=== PATIENT | male | born 1995 | race Caucasian/White ===

== ENCOUNTER 2017-11-10 22:36 | Inpatient (IN) | payer OTHER ==
[~2017-11-10] VITALS: Ht 186.7 cm; Wt 87.7 kg
[~2017-11-10 22:36] MED LIST: AUGMENTIN 875-1 EACH PO; LIDODERM1 EACH TOP; NAPROSYN500 M1 PO; NEXIUM20 M1 PO
--- NOTE | 2017-11-10 22:41 | ED GENERAL ADULT ---
History of Present Illness General Chief Complaint: Psychiatric Related Complaint Stated Complaint: BIBA +SI/DEPRESSION Source: patient Exam Limitations: clinical condition, intoxication Allergies Coded Allergies: No Known Allergies (05/08/17) Reconcile Medications Amoxicillin/Potassium Clav (Augmentin 875-125 Tablet) 875 MG-125 MG TABLET 1 TAB PO BID dog bite Esomeprazole Magnesium (Nexium) 20 MG CAPSULE.DR 1 CAP PO DAILY stomach acid Lidocaine (Lidoderm) 5 % ADH..PATCH 1 PAT TOP DAILY PRN pain may wear up to 12 hours Naproxen (Naprosyn) 500 MG TABLET 1 TAB PO BID PRN pain Triage Nurses Notes Reviewed? yes Onset: Abrupt Duration: unknown duration Timing: recent history HPI: 11/11/17 22-year-old man brought in by ambulance for depression with suicidal ideation. He states that he took an unknown quantity of Lamictal and also took Buprenorhine. He does admit to suicidal ideation. History is limited as he is intoxicated. He says he has a history of bipolar disorder. Initially said he took only 5 Lamictal tablets, on reevaluation he says he took 50 tablets at 7 PM. Consultation with poison control was obtained. Supportive care, IV fluids, and monitoring for seizures. (Davis Pretty DO) Vital Signs & Intake/Output Vital Signs & Intake/Output Vital Signs Date Time Temp Pulse Resp B/P B/P Pulse O2 O2 Flow FiO2 Mean Ox Delivery Rate 11/11 0142 146 16 139/53 99 Room Air Room Air 11/11 0052 138 16 139/74 99 Room Air Room Air 11/10 2310 99.5 128 20 129/80 96 Room Air (Roby NAVARRO,Luke Salas) Past History Medical History Any Pertinent Medical History? see below for history Neurological: NONE EENT: NONE Cardiovascular: NONE Respiratory: NONE Gastrointestinal: NONE Hepatic: NONE Renal: NONE Musculoskeletal: NONE Psychiatric: anxiety, depression Endocrine: NONE Blood Disorders: NONE Cancer(s): NONE [employer]/Reproductive: NONE Surgical History Surgical History: non-contributory Psychosocial History What is your primary language St Helen[place] Family History Hx Contributory? No (Davis Pretty DO) Review of Systems Review of Systems Constitutional: Denies: fever. EENTM: Reports: see HPI. Respiratory: Denies: short of breath. Cardiovascular: Denies: chest pain. GI: Reports: no symptoms. Genitourinary: Reports: no symptoms. Musculoskeletal: Reports: no symptoms. Skin: Reports: no symptoms. Neurological/Psychological: Reports: anxiety. Hematologic/Endocrine: Reports: no symptoms. Immunologic/Allergic: Reports: no symptoms. (Davis Pretty DO) Physical Exam Physical Exam General Appearance: awake, anxious, severe distress Head: rotary nystagmus Eyes: Bilateral: EOMI (rotary nystagmus). Ears, Nose, Throat: normal pharynx Neck: normal inspection, supple Respiratory: normal breath sounds, chest non-tender, no respiratory distress Cardiovascular: tachycardia Peripheral Pulses: 4+ radial (R), 4+ radial (L) Gastrointestinal: soft, non-tender Back: decreased range of motion Extremities: normal inspection, no edema Neurologic/Psych: awake, alert Skin: intact, normal color, warm/dry Core Measures ACS in differential dx? No CVA/TIA Diagnosis: No Sepsis Present: No Sepsis Focused Exam Completed? No (Davis Pretty DO) Progress Differential Diagnoses I considered the following diagnoses in my evaluation of the patient: Plan of Care: Orders Procedure Date/time Status EKG 11/11 0330 Active Patient Data 11/116 Active Admit to inpatient 11/11 0312 Active Intake & Output 11/11 0259 Active Add-on Test (ER Only) 11/11 0252 Active Add-on Test (ER Only) 11/11 0108 Active Add-on Test (ER Only) 11/11 0103 Active Add-on Test (ER Only) 11/11 0057 Active Telemetry/Chemical Economist 11/11 0057 Active EKG 11/11 0057 Active Continuous Observation Monitor 11/11 0028 Active URINE DRUG SCREEN FOR ER ONLY 11/11 2319 Complete ACETOMINOPHEN 11/11 2319 Active SALICYLATE 11/11 2319 Active LIPASE 11/11 2319 Active ETHANOL 11/11 2319 Active DEPAKOTE LEVEL 11/11 2319 Active COMPREHENSIVE METABOLIC PANEL 11/11 2319 Active CREATINE PHOSPHOKINASE 11/11 2319 Active CBC WITHOUT DIFFERENTIAL 11/11 2319 Complete AMYLASE 11/11 2319 Active Laboratory Tests 11/10/17 2324: Methadone Screen < 40, Barbiturate Screen < 60, Ur Phencyclidine Scrn < 6.00, Amphetamines Screen < 100, U Benzodiazepines Scrn < 85, Urine Cocaine Screen < 50, Urine Cannabis Screen < 5.00 11/10/17 2320: Anion Gap 12, Estimated GFR > 60, BUN/Creatinine Ratio 15.0, Glucose 109 H, Calcium 9.2, Total Bilirubin 0.4, AST 27, ALT 34, Alkaline Phosphatase 73, Creatine Kinase 123, Total Protein 6.8, Albumin 4.6, Globulin 2.2, Albumin/ Globulin Ratio 2.1, Amylase Pending, Lipase Pending, CBC w Diff NO MAN DIFF REQ, RBC 5.32, MCV 87.5, MCH 29.9, MCHC 34.2, RDW 12.6, MPV 7.8, Gran % 61.1, Lymphocytes % 29.4, Monocytes % 7.1, Eosinophils % 2.0, Basophils % 0.4, Absolute Granulocytes 5.0, Absolute Lymphocytes 2.4, Absolute Monocytes 0.6, Absolute Eosinophils 0.2, Absolute Basophils 0, Salicylates < 1.0, Acetaminophen < 10.0 L, Valproic Acid < 10.0 L, Serum Alcohol 120.0 Initial ED EKG: narrow complex tachycardia, 140s Consultation with cardiology- Dr. Ritter, agrees no A. fib. Supportive care with IV fluids. Comments: The patient was treated with IV fluids. He was on a environmental monitoring technician, multiple neurological exams. He was always oriented 3 but was slow to respond, with rotary nystagmus. The patient was signed out to Dr. Ca for further observation and likely admission. (Davis Pretty DO) Diagnostic Imaging: Viewed by Me: Radiology Read. Discussed w/RAD: Radiology Read. CXR Impression: PATIENT: DENISE PLATA PRESENT AGE: 22 PATIENT ACCOUNT NO: [id number] : 93 LOCATION: [facility] ORDERING PHYSICIAN: Davis Pretty DO SERVICE DATE: 11/11/17 EXAM TYPE: RAD - XRY-PORTABLE CHEST XRAY EXAMINATION: CHEST 1 VIEW CLINICAL INFORMATION: Vomiting. Altered mental status. COMPARISON: None. TECHNIQUE: An AP view of the chest is provided. FINDINGS: The cardiac silhouette is not enlarged. The mediastinal and hilar contours are unremarkable. There are neither pleural effusions nor pneumothoraces. There are no consolidations. The osseous structures are unremarkable. IMPRESSION: No evidence for acute disease. DICTATED BY: Dio Arrieta MD DATE/TIME DICTATED:11/11/17241 BATTERY PLATE REMOVER: CLARE DATE/TIME TRANSCRIBED:11/11/17241 CONFIDENTIAL, DO NOT COPY WITHOUT APPROPRIATE AUTHORIZATION. <Electronically signed in Other Vendor System> SIGNED BY: Dio Arrieta MD 11/11/17245 (Luke Ca MD) Departure Departure Disposition: STILL A PATIENT Condition: Stable Referrals: Patient Has No Primary Care Dr (PCP/Family) Departure Forms: Customer Survey General Discharge Information (Davis Pretty DO) Departure Clinical Impression Primary Impression: Drug overdose Secondary Impressions: Acute delirium, Tachycardia Comments 11/11/17, 2:50am... pt informs me the lamictal tabs 100mg, approx 50 pills... 50 gm total at approximately 7pm (8 hours ago) discussed with poison control.... pts with 4gm overdoses have had widening qrs complex, seizures, coma..... peak time to onset is 2-3 hours... to 4-11 hours... 1/2 life 14 hours (2gms) up to 28-36 hours. Admission Note Spoke With: Daljit Hale MD Documentation of Exam: Documentation of any treatments & extenuating circumstances including Concerns Regarding Discharge (functional status, medication knowledge or non-compliance, living conditions, etc.) that warrant an admission rather than observation: pt with approximately 50 gm lamictal overdose 8 hours ago with oculogyrus, delerium... given the high risk of dysrhythmia, coma with uncertain, prolonged pharmacokinetics (noted above), pt merits icu admission. (Roby NAVARRO,Luke Salas) Critical Care Note Critical Care Note Critical Care Time: 30-74 min (Davis Pretty DO) Critical Care Time: 30-74 min (Davis Pretty DO)
[2017-11-10 23:37] LABS: ABSOLUTE BASOPHIL COUNT 0 /CUMM (0.0-0.2); ABSOLUTE EOSINOPHIL COUNT 0.2 /CUMM (0.0-0.7); ABSOLUTE LYMPH COUNT 2.4 /CUMM (1.2-3.4); ABSOLUTE MONOCYTE COUNT 0.6 /CUMM (0.10-0.60); BASOPHIL % 0.4 % (0.0-2.0); GRANULOCYTE % 61.1 % (42.2-75.2); HEMATOCRIT 46.5 % (42-52); MEAN CORPUSCULAR HGB 29.9 PG (27.0-31.0); MEAN CORPUSCULAR HGB CONC 34.2 G/DL (33.0-37.0); MEAN CORPUSCULAR VOLUME 87.5 FL (80.0-94.0); MEAN PLATELET VOLUME 7.8 FL (7.4-10.4); PLATELET COUNT 235 /CUMM (130-400); RBC DISTRIBUTION WIDTH 12.6 % (11.5-14.5); RED BLOOD CELL CT 5.32 /CUMM (4.70-6.10); WHITE BLOOD CELL COUNT 8.2 /CUMM (4.8-10.8)
--- NOTE | 2017-11-11 02:46 | RADIOLOGY REPORT ---
EXAMINATION: CHEST 1 VIEW CLINICAL INFORMATION: Vomiting. Altered mental status. COMPARISON: None. TECHNIQUE: An AP view of the chest is provided. FINDINGS: The cardiac silhouette is not enlarged. The mediastinal and hilar contours are unremarkable. There are neither pleural effusions nor pneumothoraces. There are no consolidations. The osseous structures are unremarkable. IMPRESSION: No evidence for acute disease.
--- NOTE | 2017-11-11 03:22 | History & Physical ---
Nilton Lobato 11/11/17 0321: General Information and HPI MD Statement: I have seen and personally examined DENISE PLATA and documented this H&P. The patient is a 22 year old M who presented with a patient stated chief complaint of SUICIDE ATTEMPT BY INGESTION OF LAMOTRIGINE, BUPROPRION, ALCOHOL, AND DISULFIRAM. Source of Information: patient Exam Limitations: clinical condition History of Present Illness: Patient is a 22 year old male with past medical history of bipolar ( predominantly depressive symptoms) and alcohol abuse, with hospitalizations for both, and one prior suicide attempt by medication ingestion, who was brought in by ambulance for suicide attempt by ingestion of lamotrigine, bupropion, alcohol , and disulfiram. The patient began drinking alcohol at 1600 yesterday, with the expressed intent of getting drunk, and without self-harm intentions. At some point between 1600 and 1900, the patient developed the idea to attempt suicide by taking an overdose of his prescribed medications, lamotrigine and bupropion. He estimates he took 25-50 pills of each, lamotrigine 100mg and buproprion XL 150mg. He also states he took roughly 8 pills of disulfiram. Of note, the patient states he had not taken either of those medications in roughly two weeks, and that he took himself off of them without consulting a physician. Also during this time, the patient reached out to a female friend he states he has not had contact with in over a year, and that he made a comment which he cannot directly remember, but that it was worrisome to her and that is why she called the emergency services. In the ED, the patient admitted to overdose by lamotrigine, and later included buproprion. On exam, he was overtly spastic and ataxic; the nurse reported to this physician that when he first presented he was particularly rigid. He was found to have hypokalema 3.4, magnesium and phosphorus pending. His EKG showed sinus tachycardia, initially at 143 bpm, later slowing to 114 bpm with fluid repletion. His chest x-ray was unremarkable. When asked about the reason for the suicide attempt, the patient stated that his home life was difficult, and described having feelings for his roommate, who currently has another boyfriend. He then stated that there is more complicating his home life, but would not specify more. He is being admitted to the ICU for monitoring of overdose toxicity and electrolyte imbalances. Allergies/Medications Allergies: Coded Allergies: No Known Allergies (05/08/17) Home Med list Amoxicillin/Potassium Clav (Augmentin 875-125 Tablet) 875 MG-125 MG TABLET 1 TAB PO BID dog bite Esomeprazole Magnesium (Nexium) 20 MG CAPSULE.DR 1 CAP PO DAILY stomach acid Lidocaine (Lidoderm) 5 % ADH..PATCH 1 PAT TOP DAILY PRN pain may wear up to 12 hours Naproxen (Naprosyn) 500 MG TABLET 1 TAB PO BID PRN pain Compliance With Home Meds: POOR Past History Travel History Traveled to [place] past 21 day No Medical History Neurological: NONE EENT: NONE Cardiovascular: NONE Respiratory: NONE Gastrointestinal: NONE Hepatic: NONE Renal: NONE Musculoskeletal: NONE Psychiatric: anxiety, bipolar disease, depression Endocrine: NONE Blood Disorders: NONE Cancer(s): NONE 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 Home Who Do You Live With? roommate Services at Home: None Primary Language: Algerian Smoking Status: Former Smoker (uses lozenges) ETOH Use: alcoholic (has been hospitalized and IOP) Illicit Drug Use: denies illicit drug use Functional Ability ADLs Independent: dressing, eating, toileting, bathing. Ambulation: independent IADLs Independent: shopping, housework, finances, food prep, telephone, transportation , medication admin. Employment History Employment Unemployed Review of Systems Review of Systems Constitutional: Reports: see HPI. All Other Systems: Reviewed and Negative Exam & Diagnostic Data Last 24 Hrs of Vital Signs/I&O Vital Signs Date Time Temp Pulse Resp B/P B/P Pulse O2 O2 Flow FiO2 Mean Ox Delivery Rate 11/11 0415 99 Room Air Room Air 11/11 0413 116 16 139/72 99 Room Air Room Air 11/11 0330 114 16 138/76 99 Room Air Room Air 11/11 0230 121 16 132/78 99 Room Air Room Air 11/11 0142 146 16 139/53 99 Room Air Room Air 11/11 0052 138 16 139/74 99 Room Air Room Air 11/10 2310 99.5 128 20 129/80 96 Room Air Intake & Output 11/11 0800 11/11 0000 08/23 1600 Intake Total 3000 Output Total 600 Balance 2400 Intake, IV 3000 Output, 600 Emesis Physical Exam General Appearance Moderate Distress, rhythmic head/neck motion at rest; ataxic movements; decreased alertness Skin No Rashes, No Breakdown, No Significant Lesion Skin Temp/Moisture Exam: Warm/Dry HEENT Atraumatic, pupils dilated at baseline; brisk direct and consensual response to light Neck Supple, No JVD, No thryomegaly Cardiovascular Normal S1, Normal S2, No Murmurs, Gallops, Rubs, regularly accelerated Lungs Clear to Auscultation, Normal Air Movement Abdomen Normal Bowel Sounds, Soft, No Tenderness, No Masses Neurological Strength at 5/5 X4 Ext, speech was slow and dysarthric; movement and reflexes were =4 brisk, pronounced ataxia on cerebellar testing Extremities No Clubbing, No Cyanosis, No Edema, Normal Pulses Last 24 Hrs of Labs/Babak: Laboratory Tests 11/11/17 0505: Sodium Pending, Potassium Pending, Chloride Pending, Carbon Dioxide Pending, Anion Gap Pending, BUN Pending, Creatinine Pending, Glucose Pending, Calcium Pending, Phosphorus Pending, Magnesium Pending, Total Bilirubin Pending, AST Pending, ALT Pending, Albumin Pending, CBC w Diff Pending, WBC Pending, RBC Pending, Hgb Pending, Hct Pending, MCV Pending, MCH Pending, MCHC Pending, RDW Pending, Plt Count Pending, MPV Pending 11/10/17 2324: Methadone Screen < 40, Barbiturate Screen < 60, Ur Phencyclidine Scrn < 6.00, Amphetamines Screen < 100, U Benzodiazepines Scrn < 85, Urine Cocaine Screen < 50, Urine Cannabis Screen < 5.00 11/10/17 2320: Anion Gap 12, Estimated GFR > 60, BUN/Creatinine Ratio 15.0, Glucose 109 H, Calcium 9.2, Total Bilirubin 0.4, AST 27, ALT 34, Alkaline Phosphatase 73, Creatine Kinase 123, Total Protein 6.8, Albumin 4.6, Globulin 2.2, Albumin/ Globulin Ratio 2.1, Amylase 107, Lipase 224, CBC w Diff NO MAN DIFF REQ, RBC 5.32, MCV 87.5, MCH 29.9, MCHC 34.2, RDW 12.6, MPV 7.8, Gran % 61.1, Lymphocytes % 29.4, Monocytes % 7.1, Eosinophils % 2.0, Basophils % 0.4, Absolute Granulocytes 5.0, Absolute Lymphocytes 2.4, Absolute Monocytes 0.6, Absolute Eosinophils 0.2, Absolute Basophils 0, Salicylates < 1.0, Acetaminophen < 10.0 L, Valproic Acid < 10.0 L, Serum Alcohol 120.0 Diagnostic Data EKG Results sinus tachycardia, borderline widened QTc, normal QRS CXR Results Unremarkable Assessment/Plan Assessment: Patient is a 22 year old male with past medical history of bipolar ( predominantly depressive symptoms) and alcohol abuse, with hospitalizations for both, and one prior suicide attempt by medication ingestion, who was brought in by ambulance for suicide attempt by ingestion of lamotrigine, bupropion, alcohol , and disulfiram. Problem list/plan: Overdose toxicity -Patient states he overdosed on lamotrigine, buproprion, alcohol and disulfiram -Patient has already had 5L NS hung; continue hydration -Replete K with 4 runs of 10meq, recheck K -Start sodium bicarbonate drip 150meq at 150ml/hr -One time dose of ativan for seizure prophylaxis -Start CIWA protocol, diagnostic only -Neurology consult for ataxia Bipolar, predominantly depressive symptoms -Psychiatry consultation once patient is medically stable -Continuous monitor for suicide prevention Alcohol abuse -Patient states he has had roughly 7-8 months sobriety, with just this and a few other slips -Already covered for alcohol withdrawal with CIWA protocol DVT prophylaxis: Subcu heparin and ALPS NPO presently Patient is full code As Ranked By This Provider Problem List: 1. Drug overdose 2. Overdose of anticonvulsant 3. Overdose of antidepressant 4. Prolonged Q-T interval on ECG 5. Hypokalemia 6. Tachycardia Core Measures/Misc (12/05) Acute Coronary Syndrome ACS Diagnosis: No Congestive Heart Failure Congestive Heart Failure Diagnosis No Cerebrovascular Accident CVA/TIA Diagnosis: No VTE (View Protocol) VTE Risk Factors Acute Medical Illness No Mechanical VTE Prophylaxis d/t N/A MechProphylax Ordered No VTE Pharm Prophylaxis d/t NA PharmProphylax ordered Sepsis (View protocol) Sepsis Present: No If YES complete Sepsis Event Note If YES complete Sepsis Event Note Mikey Baca MD 11/11/17 0531: Core Measures/Misc (12/05) Sepsis (View protocol) If YES complete Sepsis Event Note If YES complete Sepsis Event Note Resident Review Statement Resident Statement: examined this patient, discussed with ad operations intern, agreed with ad operations intern, reviewed EMR data (avail) Other Findings: 22 year old male with past medical history of bipolar and alcohol use disorders with reported approximately eight psych hospitalizations mostly for depressive symptoms with SI (1 for intention pharmaceutical overdose, can't recall medications), and inpatient and IOP txs for EtOH most recently at [facility] for which he is in treatment with Chelsea Hoover who provides him with Antabuse, Wellbutrin, and Lamictal who presents with intentional toxic ingestion of those medications with alcohol in a suicide attempt. He says hes recently had seven months of sobriety but had a slip and recently 30 days of sobriety leading up to today when he started drinking a pint of vodka around 1600. At 1900, he ingested approximately 25-50 tablets of both Lamictal 100mg and Wellbutrin XL 150mg. He also states he took 8 tables of Antabuse 250mg but denies that he had a disulfuram reaction, although this has happened to him before. He states he sent a suicidal text to a female acquaintance re: suicidality and was brought to [facility] by EMS thereafter. He states this was an intentional suicide attempt and impulsive. He states he is upset by "home-life" and only references living with a female for whom he has feelings that aren't reciprocal. Poison control was contacted and he was admitted to critical care for monitoring, supportive care, seizure precautions, and electrolyte abnormalities. EKG was sinus tachycardia QRS <120ms and QTc from 430-475, chemistries were notable for hypokalemia of 3.4 but otherwise unremarkable. Chest x-ray was normal. Physical exam- awake alert and oriented, speech was slowed, dysarthritic, flat, diaphoretic, tachycardic, without murmurs, lungs CTA, abdomen soft nt/nd bs+, no lower extremity edema, motor strength 5/5 all extremities Neuro LILI EOMI, CN 2-12 intact, all muscle groups spastic without rigidity, global ataxia with inability to perform cerebellar testing, gag reflex present, gait not assessed 22 year old male with PMH significant for bipolar, alcohol use disorder with prior suicide attempts now admitted to critical care for supportive care, seizure precautions after intentional toxic ingestion with alcohol, bupropion, and lamotrigine. Toxic ingestion/suicide attempt: Admit to ICU Toxicity includes arrhythmia and seizure Given 5L of crystalloid in the ED Poison control contacted Serial EKGs, QTc prolonged to 475, start 150meq NaHCO3 in D5W @ 150cc/hr x 1L Increased seizure risk from both lamictal and bupropion, especially XL formulation Patient reported vomited some pills in the ED Serum EtOH was 120 on presentation Ativan 2mg IV x 1, CIWA monitoring, consider adding prn ativan Neurochecks Seizure precautions Aspiration precautions Fall risk Suicide precautions Continuous observation monitor Psychiatry consultation Monitor for serotonin syndrome, fever, rigidity, consider repeat CK Trend electrolytes, potassium repleted intravenously NPO DVT ppx-heparin sc Full code Daljit Hale MD 11/11/17 0555: Core Measures/Misc (12/05) Sepsis (View protocol) If YES complete Sepsis Event Note If YES complete Sepsis Event Note Attending MD Review Statement Attending Statement Attending MD Statement: examined this patient, discuss w/resident/PA/PRESS SET UP PERSON, agreed w/resident/PA/PRESS SET UP PERSON Attending Assessment/Plan: Patient is seen and examined independently by me. Care plan discussed with medical record technician and/or resident. I agree with the physical exam findings and plan of care as outlined above with the following changes and additions. 22 yo M with history of Bipolar disorder, suicide attempt, alcohol abuse, anxiety, presented with depression and suicide attempt with drug overdose. Patient states at about 4 pm, he drank 1 pint of Vodka. At about 7pm, he took about 50 pills of Lamictal 100 mg, about 50 pills of Wellbutrin XL 150 mg and 8 pills of Antabuse 250 mg. On exam, patient appears agitated. HR 114 (but as fast as 140s). Heart: tachy, S1S2. Lungs: clear. In the ED, K 3.4. Cr 0.8. Salicylates <1. Acetaminophen <10. Valproic acid <10. Urine tox screen negative. EtOH 120. CXR shows no acute infiltrate or edema. EKG#1 shows sinus tachy at [address]-T changes. QTc 432. EKG#2 shows sinus tachy at [address]-T changes. QTc 474. Patient is admitted to ICU for suicide attempt and drug overdose with Lamictal, Wellbutrin and Antabuse.\\ Cardiac monitoring. Monitor for tachycardia, arrhythmia, prolonged QT and seizure. IVF with bicarb drip and supportive care. Supplement K and monitor K, Mag and PO4. Keep K>4.0 and Mag >2.0. CIWA monitoring with Ativan prn. Start thiamine and folic acid. Suicide precaution. 1:1 sitter. Seizure precaution. Psych consult. Contact Poison Control. [facility]it Hale [facility]
[2017-11-11 05:16] LABS: ABSOLUTE BASOPHIL COUNT 0 /CUMM (0.0-0.2); ABSOLUTE EOSINOPHIL COUNT 0 /CUMM (0.0-0.7); ABSOLUTE GRANULOCYTE CT 9.3 /CUMM (1.4-6.5); ABSOLUTE MONOCYTE COUNT 0.6 /CUMM (0.10-0.60); BASOPHIL % 0.3 % (0.0-2.0); EOSINOPHIL % 0.2 % (0-5); GRANULOCYTE % 84.7 % (42.2-75.2); MEAN CORPUSCULAR HGB 30.1 PG (27.0-31.0); MEAN CORPUSCULAR VOLUME 88.7 FL (80.0-94.0); MEAN PLATELET VOLUME 7.7 FL (7.4-10.4); PLATELET COUNT 196 /CUMM (130-400); RBC DISTRIBUTION WIDTH 12.7 % (11.5-14.5); RED BLOOD CELL CT 4.55 /CUMM (4.70-6.10)
[2017-11-11 05:19] LABS: HEMATOCRIT 40.3 % (42-52)
[2017-11-11 06:14] VITALS: BP 130/82
--- NOTE | 2017-11-11 07:38 | Cons- CRCU ---
Abundio Jeornimo 11/11/17 0738: General Information and HPI Consulting Request Date of Consult: 11/11/17 Requested By: Medical team Reason for Consult: Drug overdose, risk of seizures and arrhythmia Source of Information: patient, EMS Exam Limitations: no limitations History of Present Illness: 22 YO M with PMH of bipolar, anxiety and alcohol use disorders with prior suicide attempts, reported approximately eight psych hospitalizations mostly for depressive symptoms with SI (1 for intention pharmaceutical overdose, can't recall medications), and inpatient and IOP txs for EtOH most recently at care for which he is in treatment with Chelsea Hoover who provides him with Antabuse, Wellbutrin, and Lamictal who presents with intentional toxic ingestion of those medications with alcohol in a suicide attempt. He says hes recently had seven months of sobriety but had a slip and recently 30 days of sobriety leading up to today when he started drinking a pint of vodka around 1600. At 1900, he ingested approximately 25-50 tablets of both Lamictal 100mg and Wellbutrin XL 150mg. He states this was an intentional suicide attempt and impulsive. He states he is upset by "home-life" and only references living with a female for whom he has feelings that aren't reciprocal. He is being admitted to critical care for close monitoring for seizures and arrhythmia. Also for supportive care, seizure precautions after intentional toxic ingestion with alcohol, bupropion, and lamotrigine. Patient is seen and examined this morning. He was looking anxious and drowsy. He reported nausea and vomiting. He reported vomiting couple of times last night. Patient doesn't want to inform his parents/family members about his condition and admission to hospital. Patient has one on one sitter on the bedside. Allergies/Medications Allergies: Coded Allergies: No Known Allergies (05/08/17) Home Med List: Amoxicillin/Potassium Clav (Augmentin 875-125 Tablet) 875 MG-125 MG TABLET 1 TAB PO BID dog bite Esomeprazole Magnesium (Nexium) 20 MG CAPSULE.DR 1 CAP PO DAILY stomach acid Lidocaine (Lidoderm) 5 % ADH..PATCH 1 PAT TOP DAILY PRN pain may wear up to 12 hours Naproxen (Naprosyn) 500 MG TABLET 1 TAB PO BID PRN pain Current Medications: Current Medications Sig/Nancy Start time Last Medication Dose Route Stop Time Status Admin Calcium Gluconate 0 .STK-MED ONE 11/11 0758 DC IV Calcium Gluconate 1 GM ONCE ONE 11/11 0615 DC 11/11 Sodium Chloride 100 ML IV 11/11 0714 0802 Heparin Sodium 5,000 UNIT Q8 11/11 0600 AC (Porcine) SC Lorazepam 0 .STK-MED ONE 11/11 0502 DC .ROUTE Lorazepam 2 MG ONE ONE 11/11 0500 DC 11/11 IV 11/11 0501 0505 Magnesium Sulfate 1 GM Q2H 11/11 0615 AC 11/11 Dextrose/Water 100 ML IV 11/11 1014 0811 Magnesium Sulfate 1 GM ONCE ONE 11/11 0430 DC 11/11 Dextrose/Water 100 ML IV 11/11 0829 0547 Potassium Chloride 10 MEQ Q1H 11/11 0445 DC 11/11 IV 11/11 0746 0824 Potassium Phosphate 15 mMol ONE ONE 11/11 0615 AC 11/11 Dextrose/Water 250 ML IV 11/11 1019 0900 Sodium Bicarbonate 150 MEQ CONTINOUS INFUSION 11/11 0515 AC Dextrose/Water 1,000 ML IV 11/11 1154 Sodium Chloride 1,000 ML Q6H 11/11 0430 AC 11/11 IV 0510 Sodium Chloride 1,000 ML BOLUS ONE 11/11 0300 DC 08 IV 11/11 0359 0407 Sodium Chloride 1,000 ML BOLUS ONE 11/11 0300 DC 11/11 IV 11/11 0359 0320 Sodium Chloride 1,000 ML BOLUS ONE 11/11 0300 DC 11/11 IV 11/11 0359 0240 Sodium Chloride 1,000 ML BOLUS ONE 11/11 0130 DC 11/11 IV 11/11 0229 0140 Sodium Chloride 1,000 ML BOLUS ONE 11/11 0100 DC 11/11 IV 11/11 0259 0110 Review of Systems Review of Systems Constitutional: Denies: chills, fever. EENTM: Reports: see HPI. Cardiovascular: Denies: chest pain, palpitations, syncope. Respiratory: Denies: cough, short of breath, sputum production. GI: Reports: nausea, vomiting. Denies: abdominal pain, constipation, diarrhea. Genitourinary: Denies: frequency, pain. Musculoskeletal: Reports: see HPI. Neurological/Psychological: Reports: see HPI. 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 Home Who Do You Live With? roommate Services at Home: None Primary Language: French Smoking Status: Former Smoker (uses lozenges) ETOH Use: alcoholic (has been hospitalized and IOP) Illicit Drug Use: denies illicit drug use Functional Ability ADLs Independent: dressing, eating, toileting, bathing. Ambulation: independent IADLs Independent: shopping, housework, finances, food prep, telephone, transportation , medication admin. Employment History Employment: Unemployed Exam & Diagnostic Data Last 24 Hrs of Vital Signs/I&O Vital Signs Date Time Temp Pulse Resp B/P B/P Pulse O2 O2 Flow FiO2 Mean Ox Delivery Rate 11/11 08 98.6 105 20 124/79 100 Room Air 11/11 0614 97.1 122 24 130/82 11/11 0614 97 Room Air Room Air 11/11 0510 96.9 120 16 135/76 99 Room Air Room Air 11/11 0415 99 Room Air Room Air 11/11 0413 116 16 139/72 99 Room Air Room Air 11/11 0330 114 16 138/76 99 Room Air Room Air 11/11 0230 121 16 132/78 99 Room Air Room Air 11/11 0142 146 16 139/53 99 Room Air Room Air 11/11 0052 138 16 139/74 99 Room Air Room Air 11/10 2310 99.5 128 20 129/80 96 Room Air Intake & Output 11/11 1600 11/11 0800 11/11 0000 Intake Total 5000 Output Total 1300 Balance 3700 Intake, IV 5000 Output, 800 Emesis Output, Urine 500 Patient 193 lb Weight Weight Bed scale Measurement Method Physical Exam General Appearance: well developed/nourished, no apparent distress, alert, awake , anxious Head: atraumatic Neck: normal inspection, supple Respiratory: normal breath sounds, chest non-tender Cardiovascular: regular rate/rhythm Gastrointestinal: normal bowel sounds, soft, non-tender Extremities: no edema Neurologic/Psych: awake, alert, Ataxia, TREMORS Last 48 Hrs of Labs/Babak: Laboratory Tests 11/11/17 1050: Sodium Pending, Potassium Pending, Chloride Pending, Carbon Dioxide Pending, Anion Gap Pending, BUN Pending, Creatinine Pending, Glucose Pending, Lactic Acid Pending, Calcium Pending, Phosphorus Pending, Magnesium Pending, Total Bilirubin Pending, AST Pending, ALT Pending, Creatine Kinase Pending, Troponin I Pending, Albumin Pending 11/11/17 0505: Anion Gap 12, Estimated GFR > 60, Glucose 115 H, Calcium 7.2 L, Phosphorus 2.4 L, Magnesium 1.4 L, Total Bilirubin 0.3, AST 23, ALT 31, Albumin 3.7, CBC w Diff NO MAN DIFF REQ, RBC 4.55 L, MCV 88.7, MCH 30.1, MCHC 34.0, RDW 12.7, MPV 7.7, Gran % 84.7 H, Lymphocytes % 9.3 L, Monocytes % 5.5, Eosinophils % 0.2, Basophils % 0.3, Absolute Granulocytes 9.3 H, Absolute Lymphocytes 1.0 L, Absolute Monocytes 0.6, Absolute Eosinophils 0, Absolute Basophils 0 11/10/17 2324: Methadone Screen < 40, Barbiturate Screen < 60, Ur Phencyclidine Scrn < 6.00, Amphetamines Screen < 100, U Benzodiazepines Scrn < 85, Urine Cocaine Screen < 50, Urine Cannabis Screen < 5.00 11/10/17 2320: Anion Gap 12, Estimated GFR > 60, BUN/Creatinine Ratio 15.0, Glucose 109 H, Calcium 9.2, Magnesium 2.2, Total Bilirubin 0.4, AST 27, ALT 34, Alkaline Phosphatase 73, Creatine Kinase 123, Total Protein 6.8, Albumin 4.6, Globulin 2.2, Albumin/Globulin Ratio 2.1, Amylase 107, Lipase 224, CBC w Diff NO MAN DIFF REQ, RBC 5.32, MCV 87.5, MCH 29.9, MCHC 34.2, RDW 12.6, MPV 7.8, Gran % 61.1, Lymphocytes % 29.4, Monocytes % 7.1, Eosinophils % 2.0, Basophils % 0.4, Absolute Granulocytes 5.0, Absolute Lymphocytes 2.4, Absolute Monocytes 0.6, Absolute Eosinophils 0.2, Absolute Basophils 0, Salicylates < 1.0, Acetaminophen < 10.0 L, Valproic Acid < 10.0 L, Serum Alcohol 120.0 Assessment/Plan CRCU Impression/Plan: 22 yo M with PMH of Bipolar disorder, suicide attempt, alcohol abuse, anxiety, presented with depression and suicide attempt with drug overdose. Patient states at about 4 pm, he drank 1 pint of Vodka. At about 7pm, he took about 50 pills of Lamictal 100 mg, about 50 pills of Wellbutrin XL 150 mg and 8 pills of Antabuse 250 mg. In ED, patient appears agitated. HR 114 (but as fast as 140s). K 3.4. Cr 0.8. Salicylates <1. Acetaminophen <10. Valproic acid <10. Urine tox screen negative. EtOH 120 We are following the patient in ICU for close monitoring for arrhythmia and seizures. Drug overdose and suicidal attempt: -Patient took Lamictal, Wellbutrin and Antabuse. His QTC was 475 on EKG with QRS less than 120 ms. Patient isn't risk of arrhythmias with prolonged QTC. -Continue bicarbonate drip at the rate of 150 mEq per hour. -Seizure precautions -Aspiration precaution -Psychiatry recommendations. -Neurology recommendations. -Neurochecks -Monitor for serotonin syndrome, fever, rigidity, consider repeat CK -One-on-one sitter due to suicidal ideation. -Follow-up EKG for QTc interval. -Continue IV hydration Alcohol abuse: -Patient reported that he drank 1 pint of vodka yesterday around 4 PM. Serum EtOH was 120 on presentation. -Patient also to 8 tablets of Antabuse 250 mg. Patient is complaining of nausea and vomiting -Continue CIWA protocol and Ativan 2 mg IV when necessary. -Thiamine supplementation and folic acid. Hypomagnesemia and hypokalemia: -Possibly due to alcohol use -Monitoring his magnesium and potassium level -This morning his potassium was 3.6 and this was repleted and magnesium was 1.4 and he is on IV magnesium repletion. History of anxiety, depression and bipolar disorder: -Follow-up recommendations of psychiatry for further medication. DVT prophylaxis: Mechanical and subcutaneous heparin CODE STATUS: Full code Consult Acknowledgment - Thank you for your consult request. Juan Pablo Meredith MD 11/11/17 1107: Assessment/Plan CRCU Other Findings/Comments: Juan Pablo Magdaleno M.D. have examined this patient, reviewed available EMR data, personally reviewed images, discussed with resident/PA/LIFE CLAIMS EXAMINER, discussed management plan with housestaff and nursing staff, discussed managment plan all of healthcare providers, discussed management plan with patient and/or family, agreed with resident/PA/LIFE CLAIMS EXAMINER. The past history and parts of the chart have been autopopulated. Impression 22 year old man * acute ingestion with a suicide attempt - lamictal, buproprion XL, etoh, antabuse Plan Respiratory -monitor respiratory status -cxr is clear ID -no acute issues -monitor wbc, no obvious aspiration, however vomitted, will observe CVS -monitor hemodynamics -physiologic sinus tachycardia, if persists will consider ECHO Heme -check coags, monitor cbc Metabolic -monitor electrolytes, ins/outs, creatinine -on bicarbonate drip - once QTc normalizes will discontinue Alimentary -NPO until mental status improves and swallowing is safe Neuro -neurology and psychiatry consultations -poison control was contacted DVT prophylaxis at all times TTS 85 minutes Patient clearly requesting to keep his medical care confidential and no one is to be contacted at this time. Consult Acknowledgment - Thank you for your consult request.
[2017-11-11 08:00] VITALS: BP 124/79
--- NOTE | 2017-11-11 11:07 | Admission Certification ---
Admission Certification Certification Statement - As attending physician, I certify that at the time of - admission, based on clinical presentation, severity of - symptoms, need for further diagnostic testing and - therapeutic interventions, and risk of adverse outcomes - without in-hospital treatment, in my clinical assessment, - this patient requires an acute hospital stay for a minimum - of two nights or longer. I have also considered psychsocial - factors such as support system, advanced age, financial - issues, cognitive issues, and failed out-patient treatments, - past re-admission history, safety of patient, and lack of - compliance as applicable. Specific rationale supporting this admission is: ICU level of care for suicide attempt with ingestion of lamictal, buproprion, etoh, antabuse, spasticity
--- NOTE | 2017-11-11 13:11 | Incdntl Nt Psy ---
Incidental Note Notation: Attempted to see the patient twice today but he was too sedated. Please contact psychiatry when the patient is alert and able to participate in interview. Over the weekend this can be done by calling Inpatient Psychiatry.
--- NOTE | 2017-11-11 13:32 | RADIOLOGY REPORT ---
EXAMINATION: XR PORTABLE CHEST CLINICAL INFORMATION: Chronic overdose, alcohol abuse and vomiting. Assess for aspiration pneumonia. COMPARISON: None. TECHNIQUE: Portable frontal view of the chest was obtained. FINDINGS: The lung diaz are well expanded and appear clear bilaterally. The cardiac silhouette is normal. There are no pleural effusions or pneumothorax. The central pulmonary vasculature is normal. The hilar regions appear normal. There are no acute osseous findings. There are multiple monitor leads overlying the chest. IMPRESSION: 1. There are no acute cardiopulmonary findings.
--- NOTE | 2017-11-11 13:44 | Cons- Neurology ---
General Information and HPI Consulting Request Date of Consult: 11/11/17 Requested By: Daljit aHle MD History of Present Illness: 22-year-old male with known bipolar disorder, admitted after intentional overdose with lamotrigine, bupropion, disulfiram and ethanol. He was noted to be ataxic and neurology has been asked to evaluate. Allergies/Medications Allergies: Coded Allergies: No Known Allergies (05/08/17) Home Med List: Amoxicillin/Potassium Clav (Augmentin 875-125 Tablet) 875 MG-125 MG TABLET 1 TAB PO BID dog bite Esomeprazole Magnesium (Nexium) 20 MG CAPSULE.DR 1 CAP PO DAILY stomach acid Lidocaine (Lidoderm) 5 % ADH..PATCH 1 PAT TOP DAILY PRN pain may wear up to 12 hours Naproxen (Naprosyn) 500 MG TABLET 1 TAB PO BID PRN pain Review of Systems Review of Systems: Limited due to his mental status Past History Travel History Traveled to [place] past 21 day No Medical History Blood Transfusion Hx: No Neurological: NONE EENT: NONE Cardiovascular: NONE Respiratory: NONE Gastrointestinal: NONE Hepatic: NONE Renal: NONE Musculoskeletal: NONE Psychiatric: anxiety, bipolar disease, depression Endocrine: NONE Blood Disorders: NONE Cancer(s): NONE 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 Home Who Do You Live With? roommate Services at Home: None Primary Language: Kinyarwanda Smoking Status: Former Smoker (uses lozenges) ETOH Use: alcoholic (has been hospitalized and IOP) Illicit Drug Use: denies illicit drug use Functional Ability ADLs Independent: dressing, eating, toileting, bathing. Ambulation: independent IADLs Independent: shopping, housework, finances, food prep, telephone, transportation , medication admin. Employment History Employment: Unemployed Exam & Diagnostic Data Vital Signs and I&O Vital Signs Date Time Temp Pulse Resp B/P B/P Pulse O2 O2 Flow FiO2 Mean Ox Delivery Rate 11/11 0800 98.6 105 20 124/79 100 Room Air 11/11 0614 97.1 122 24 130/82 11/11 0614 97 Room Air Room Air 11/11 0510 96.9 120 16 135/76 99 Room Air Room Air 11/11 0415 99 Room Air Room Air 11/11 0413 116 16 139/72 99 Room Air Room Air 11/11 0330 114 16 138/76 99 Room Air Room Air 11/11 0230 121 16 132/78 99 Room Air Room Air 11/11 0142 146 16 139/53 99 Room Air Room Air 11/11 0052 138 16 139/74 99 Room Air Room Air 11/10 2310 99.5 128 20 129/80 96 Room Air Intake & Output 11/11 1600 11/11 0800 11/11 0000 Intake Total 5000 Output Total 1300 Balance 3700 Intake, IV 5000 Output, 800 Emesis Output, Urine 500 Patient 193 lb Weight Weight Bed scale Measurement Method Young male who was awake, alert and in no acute distress. He was oriented to person and month. He was able to name the current president. The head was normocephalic. Bobbing head movements were noted. Pupils were widely dilated. Extraocular movements were grossly full. There was no nystagmus. Face was symmetric. He was hypophonic but not grossly dysarthric. Motor examination showed normal tone and bulk throughout. There was no drift to the upper extremities. There was no gross lateralizing weakness. Deep tendon reflexes were symmetrically active. Plantar responses were flexor. He had evidence of truncal ataxia in the seated position. There was some mild, finger-nose ataxia bilaterally. Evaluation of his gait was deferred. Assessment/Plan Assessment: Mr. Hooper presents with truncal ataxia in the setting of suicide attempts with various preparations including alcohol. Typically, this suggests involvement of the cerebellar vermis. Recommendations: For the time being we would recommend supportive care, ongoing psychiatric assistance, physiotherapy and close observation. MRI brain when stable. Will follow. Consult Acknowledgment - Thank you for your consult request.
[2017-11-11 14:10] LABS: PT 12.7 SEC (9.4-12.5)
[2017-11-11 16:00] VITALS: BP 154/76
[2017-11-11 20:00] VITALS: BP 140/79
[2017-11-11 22:00] VITALS: BP 146/83
[2017-11-12] VITALS (8 sets, daily range): BP systolic 113–161; BP diastolic 52–95
[2017-11-12 04:42] LABS: ABSOLUTE BASOPHIL COUNT 0 /CUMM (0.0-0.2); ABSOLUTE EOSINOPHIL COUNT 0.1 /CUMM (0.0-0.7); ABSOLUTE GRANULOCYTE CT 5.2 /CUMM (1.4-6.5); ABSOLUTE LYMPH COUNT 1.4 /CUMM (1.2-3.4); ABSOLUTE MONOCYTE COUNT 0.6 /CUMM (0.10-0.60); BASOPHIL % 0.2 % (0.0-2.0); EOSINOPHIL % 1.9 % (0-5); GRANULOCYTE % 71.6 % (42.2-75.2); HEMATOCRIT 39.2 % (42-52); MEAN CORPUSCULAR HGB 30.3 PG (27.0-31.0); MEAN CORPUSCULAR HGB CONC 34.2 G/DL (33.0-37.0); MEAN CORPUSCULAR VOLUME 88.4 FL (80.0-94.0); MEAN PLATELET VOLUME 8.2 FL (7.4-10.4); PLATELET COUNT 170 /CUMM (130-400); RBC DISTRIBUTION WIDTH 12.8 % (11.5-14.5); RED BLOOD CELL CT 4.43 /CUMM (4.70-6.10); WHITE BLOOD CELL COUNT 7.3 /CUMM (4.8-10.8)
--- NOTE | 2017-11-12 08:17 | PN- CRCU ---
Subjective HPI/Critical Care Issues: The patient is awake and alert. He reports feeling improved. He feels that his mood is bad and he does not want to discuss the events that occurred. He is slightly hungry, but has had poor oral intake. He is no longer having significant neurological symptoms. Objective Current Medications: Current Medications Sig/Nancy Start time Last Medication Dose Route Stop Time Status Admin Heparin Sodium 5,000 UNIT Q8 11/11 0600 AC 11/12 (Porcine) SC 0611 Lorazepam 0 Q1P PRN 11/11 0945 AC 11/12 IV 0419 Magnesium Sulfate 1 GM ONCE ONE 11/11 1900 DC 11/11 Dextrose/Water 100 ML IV 11/11 2259 2100 Magnesium Sulfate 1 GM Q2H 11/11 0615 DC 11/11 Dextrose/Water 100 ML IV 11/11 1014 0811 Magnesium Sulfate 1 GM ONCE ONE 11/11 0430 DC 11/11 Dextrose/Water 100 ML IV 11/11 0829 0547 Potassium Phosphate 15 mMol ONE ONE 11/11 0615 DC 11/11 Dextrose/Water 250 ML IV 11/11 1019 0900 Sodium Bicarbonate 150 MEQ Q6H 11/11 1230 DC 11/11 Dextrose/Water 1,000 ML IV 11/11 1829 1308 Sodium Bicarbonate 150 MEQ CONTINOUS INFUSION 11/11 0515 DC Dextrose/Water 1,000 ML IV 11/11 1154 Sodium Chloride 1,000 ML Q6H 11/11 0430 11/12 IV 0052 Trimethobenzamide HCl 200 MG 4 TIMES/DAY PRN 11/11 1615 AC IM Vital Signs & I&O Last 24 Hrs of Vitals and I&O: Vital Signs Date Time Temp Pulse Resp B/P B/P Pulse O2 O2 Flow FiO2 Mean Ox Delivery Rate 11/12 0600 60 20 113/52 11/12 0400 98.4 111 22 136/70 11/12 0400 96 Room Air 11/12 0200 93 20 145/86 11/12 0000 97.6 96 23 152/95 11/12 0000 97.6 96 23 152/95 98 Room Air 11/12 0000 98 Room Air 11/11 2200 94 20 146/83 11/11 2000 98.6 102 25 140/79 11/12 1999 99 Room Air 11/11 1600 98.6 108 24 154/76 99 Room Air Intake & Output 11/12 1600 11/12 0800 11/12 0000 Intake Total 1137 2546 Output Total 1999 2324 Balance -863 221 Intake, IV 1087 2496 Intake, Oral 50 50 Number 0 Bowel Movements Output, Urine 1999 2325 Physical Exam General Appearance: well developed/nourished, no apparent distress, alert, awake , anxious Head: atraumatic Neck: normal inspection, supple Respiratory: normal breath sounds, chest non-tender Cardiovascular: regular rate/rhythm Gastrointestinal: normal bowel sounds, soft, non-tender Extremities: no edema Neurologic/Psych: awake, alert Results Last 24 Hrs of Lab Results: Laboratory Tests 11/12/17 0408: Anion Gap 5, Estimated GFR > 60, Glucose 107 H, Calcium 8.6, Phosphorus 3.2, Magnesium 2.3, Total Bilirubin 0.6, AST 23, ALT 28, Creatine Kinase 207 H, Albumin 3.5, CBC w Diff NO MAN DIFF REQ, RBC 4.43 L, MCV 88.4, MCH 30.3, MCHC 34.2, RDW 12.8, MPV 8.2, Gran % 71.6, Lymphocytes % 18.7 L, Monocytes % 7.6, Eosinophils % 1.9, Basophils % 0.2, Absolute Granulocytes 5.2, Absolute Lymphocytes 1.4, Absolute Monocytes 0.6, Absolute Eosinophils 0.1, Absolute Basophils 0 11/11/17 2115: Lactic Acid 2.2 H 11/11/17 1800: Lactic Acid Cancelled 11/11/17 1513: Lactic Acid 3.3 H, Creatine Kinase 206 H 11/11/17 1300: Urine Color YEL, Urine Clarity CLEAR, Urine pH 7.0, Ur Specific [place] >= 1.030 , Urine Protein NEG, Urine Ketones NEG, Urine Nitrite NEG, Urine Bilirubin NEG, Urine Urobilinogen 0.2, Ur Leukocyte Esterase NEG, Ur Microscopic EXAM NOT REQUIRED, Urine Hemoglobin NEG, Urine Glucose NEG 11/11/17 1259: PT 12.7 H, INR 1.16 11/11/17 1050: Anion Gap 9, Estimated GFR > 60, Glucose 130 H, Lactic Acid 3.4 H, Calcium 8.0 L, Phosphorus 3.1, Magnesium 1.9, Total Bilirubin 0.3, AST 23, ALT 27, Creatine Kinase 182 H, Troponin I < 0.01, Albumin 3.5 Impression/Plan Impression/Plan Impression/Plan: 1. Suicide attempt, with Lamictal, Wellbutrin and Antabuse, resulting in QTC prolongation and neurological symptoms. 2. Alcohol abuse. 3. Electrolyte abnormalities. Recommendations: * Continue one-to-one sitter. * Monitor on seizure precautions. * Please let psychiatry know the patient is now awake and alert and able to participate in an interview. * Follow neurology recommendations, continue neuro checks. * Continue multivitamin, thiamine and folate. * Continue CIWA monitoring. * Advance diet as tolerated. * Decrease IV fluids to 75 mL/h. * DVT prophylaxis at all times.
--- NOTE | 2017-11-12 13:09 | PN- Resident CRCU ---
Subjective HPI/CRCU Issues: Drug overdose and suicidal attempt Hypomagnesemia and hypokalemia Alcohol abuse History of anxiety, depression and bipolar disorder 24 Hour Events: No overnight events, vital signs stable, afebrile, reports feeling better however he still does not have any appetite EKG showed that his QTC was in the range of 470, no rigidity or involuntary movements Objective Vital Signs & I&O Last 8 Hrs of Vitals and I&O: Intake & Output 11/12 1600 Intake Total 1760 Output Total 1550 Balance 210 Intake, IV 1200 Intake, Oral 560 Output, Urine 1550 Exam General Appearance: alert, awake, comfortable Head: atraumatic, normal appearance Neck: normal inspection, supple Respiratory: normal breath sounds, chest non-tender Cardiovascular: regular rate/rhythm Gastrointestinal: normal bowel sounds, soft, non-tender Extremities: no edema Cranial Nerves: normal hearing, normal speech, PERRL Skin: intact, normal color Current Medications: Current Medications Sig/Nancy Start time Last Medication Dose Route Stop Time Status Admin Heparin Sodium 5,000 UNIT Q8 11/11 0600 AC 11/12 (Porcine) SC 1428 Lorazepam 0 Q1P PRN 11/11 0945 AC 11/12 IV 0419 Magnesium Sulfate 1 GM ONCE ONE 11/11 1900 DC 11/11 Dextrose/Water 100 ML IV 11/11 2259 2100 Sodium Bicarbonate 150 MEQ Q6H 11/11 1230 DC 11/11 Dextrose/Water 1,000 ML IV 11/11 1829 1308 Sodium Chloride 1,000 ML Q6H 11/11 0430 AC 11/12 IV 1147 Trimethobenzamide HCl 200 MG 4 TIMES/DAY PRN 11/11 1615 AC IM Impression/Plan Impression/Problem List Impression: 22 yo M with PMH of Bipolar disorder, suicide attempt, alcohol abuse, anxiety, presented with depression and suicide attempt with drug overdose. Patient states at about 4 pm, he drank 1 pint of Vodka. At about 7pm, he took about 50 pills of Lamictal 100 mg, about 50 pills of Wellbutrin XL 150 mg and 8 pills of Antabuse 250 mg. In ED, patient appears agitated. HR 114 (but as fast as 140s). K 3.4. Cr 0.8. Salicylates <1. Acetaminophen <10. Valproic acid <10. Urine tox screen negative. EtOH 120 We are following the patient in ICU for close monitoring for arrhythmia and seizures. Drug overdose and suicidal attempt: -Patient took Lamictal, Wellbutrin and Antabuse. His QTC was 475 on EKG with QRS less than 120 ms. Patient isn't risk of arrhythmias with prolonged QTC. -Bicarbonate drip was discontinued yesterday -Seizure precautions -Aspiration precaution -Psychiatry recommendations. -Neurology recommendations. -Neurochecks -Monitor for serotonin syndrome, fever, rigidity, consider repeat CK -Continue 1:1 sitter due to suicidal ideation. -Continue IV hydration Alcohol abuse: Maximum CIWA score in the less than 24 hour was 14 Received 10 mg IV Ativan as needed for agitation in the past 24 hours -Patient reported that he drank 1 pint of vodka yesterday around 4 PM. Serum EtOH was 120 on presentation. -Patient also to 8 tablets of Antabuse 250 mg. Patient is complaining of nausea and vomiting -Continue CIWA protocol and Ativan 2 mg IV when necessary. -Thiamine supplementation and folic acid. Hypomagnesemia and hypokalemia: Improved -Possibly due to alcohol use -Monitoring his magnesium and potassium level Replete electrolytes accordingly History of anxiety, depression and bipolar disorder: -Follow-up recommendations of psychiatry for further medication. DVT prophylaxis: Mechanical and subcutaneous heparin CODE STATUS: Full code Problem List: 1. Prolonged Q-T interval on ECG 2. Hypokalemia 3. Overdose of antidepressant 4. Overdose of anticonvulsant Pain Ratin Tomorrow's Labs & Rationales: cbc icu bundle Plan DVT/Prophylaxis: mechanical, pharmacological
[2017-11-13] VITALS (13 sets, daily range): BP systolic 100–170; BP diastolic 60–100
[2017-11-13 05:00] LABS: ABSOLUTE BASOPHIL COUNT 0 /CUMM (0.0-0.2); ABSOLUTE EOSINOPHIL COUNT 0.3 /CUMM (0.0-0.7); ABSOLUTE GRANULOCYTE CT 5.7 /CUMM (1.4-6.5); ABSOLUTE LYMPH COUNT 1.9 /CUMM (1.2-3.4); ABSOLUTE MONOCYTE COUNT 0.7 /CUMM (0.10-0.60); BASOPHIL % 0.3 % (0.0-2.0); GRANULOCYTE % 66.3 % (42.2-75.2); HEMATOCRIT 42.5 % (42-52); MEAN CORPUSCULAR HGB CONC 34.2 G/DL (33.0-37.0); MEAN CORPUSCULAR VOLUME 87.8 FL (80.0-94.0); MEAN PLATELET VOLUME 8.9 FL (7.4-10.4); PLATELET COUNT 176 /CUMM (130-400); RBC DISTRIBUTION WIDTH 12.2 % (11.5-14.5); RED BLOOD CELL CT 4.85 /CUMM (4.70-6.10); WHITE BLOOD CELL COUNT 8.6 /CUMM (4.8-10.8)
--- NOTE | 2017-11-13 07:33 | PN- CRCU ---
Subjective HPI/Critical Care Issues: The patient is awake and alert. He reports feeling improved overall. He denies any shortness of breath, chest pain, nausea, vomiting, abdominal pain, fever or chills. He remains afebrile. He continues to be observed by a one-to-one sitter. His CIWA score remained overnight. He has no active signs of significant withdrawal. Objective Current Medications: Current Medications Sig/Nancy Start time Last Medication Dose Route Stop Time Status Admin Heparin Sodium 5,000 UNIT Q8 11/11 0600 AC 11/13 (Porcine) SC 0703 Lorazepam 0 Q1P PRN 11/11 0945 AC 11/12 IV 0419 Sodium Chloride 1,000 ML Q13H 11/12 1800 AC 11/13 IV 0703 Sodium Chloride 1,000 ML Q6H 11/11 0430 DC 11/12 IV 1754 Trimethobenzamide HCl 200 MG 4 TIMES/DAY PRN 11/11 1615 AC IM Vital Signs & I&O Last 24 Hrs of Vitals and I&O: Vital Signs Date Time Temp Pulse Resp B/P B/P Pulse O2 O2 Flow FiO2 Mean Ox Delivery Rate 11/13 0600 83 20 147/82 11/13 0400 97.7 81 24 170/100 11/13 0200 96 24 117/74 11/13 0000 98.0 84 22 160/100 11/13 0000 97 Room Air 11/13 0000 98.0 84 22 160/100 97 Room Air Room Air 11/12 2200 99.1 83 25 161/77 11/12 2000 99.1 86 22 151/70 11/12 1600 98.2 88 20 132/80 99 Room Air 11/12 0800 97.6 92 24 133/80 98 Room Air Intake & Output 11/13 0800 11/13 0000 11/12 1600 Intake Total 645 838 1956 Output Total 350 1550 Balance 700 425 210 Intake, IV 802 172 6380 Intake, Oral 100 350 560 Output, Urine 350 1550 Physical Exam General Appearance: well developed/nourished, no apparent distress, alert, awake , anxious Head: atraumatic Neck: normal inspection, supple Respiratory: normal breath sounds, chest non-tender Cardiovascular: regular rate/rhythm Gastrointestinal: normal bowel sounds, soft, non-tender Extremities: no edema Neurologic/Psych: awake, alert Results Last 24 Hrs of Lab Results: Laboratory Tests 11/13/17 0400: Anion Gap 8, Estimated GFR > 60, Glucose 92, Calcium 9.2, Phosphorus 4.2, Magnesium 2.1, Total Bilirubin 1.0, AST 29, ALT 26, Albumin 4.2, CBC w Diff NO MAN DIFF REQ, RBC 4.85, MCV 87.8, MCH 30.0, MCHC 34.2, RDW 12.2, MPV 8.9, Gran % 66.3, Lymphocytes % 21.8, Monocytes % 7.6, Eosinophils % 4.0, Basophils % 0.3, Absolute Granulocytes 5.7, Absolute Lymphocytes 1.9, Absolute Monocytes 0.7 H, Absolute Eosinophils 0.3, Absolute Basophils 0 Impression/Plan Impression/Plan Impression/Plan: 1. Suicide attempt, with lamotrigine, bupropion, alcohol, and disulfiram, resulting in QTC prolongation and neurological symptoms which have resolved. 2. Alcohol abuse. 3. Electrolyte abnormalities. Recommendations: * Check EKG this morning -if normal can downgrade to GEN med. * Continue one-to-one sitter. * Monitor on seizure precautions. * Continue to follow psychiatry recommendations, appreciate input. * Continue multivitamin, thiamine and folate. * Continue CIWA monitoring. * Advance diet as tolerated. * Discontinue IV fluids once oral intake is adequate. * DVT prophylaxis at all times.
--- NOTE | 2017-11-13 08:28 | PN- Resident CRCU ---
Subjective HPI/CRCU Issues: Drug overdose and suicidal attempt Alcohol abuse Hypomagnesemia and hypokalemia History of anxiety, depression and bipolar disorder 24 Hour Events: No overnight events. Patient remained afebrile. Seen and examined this morning. Patient has one-on-one sitter. He is feeling much improved. He denied chest pain, short of breath, nausea, palpitation, vomiting, abdominal pain dysuria. Patient reported constipation. He is eating and drinking well. We will discontinue his IV fluid today. Patient is stable and can be transferred to general med. His CIWA remained low overnight. This morning it was 2. Objective Vital Signs & I&O Last 8 Hrs of Vitals and I&O: Intake & Output 11/13 1600 11/13 0800 11/13 0000 Intake Total 675 700 775 Output Total 300 350 Balance 375 700 425 Intake, IV 75 600 425 Intake, Oral 600 100 350 Number 350 Bowel Movements Output, Urine 300 350 Laboratory Tests 11/13 0400 Chemistry Sodium (137 - 145 mmol/L) 137 Potassium (3.5 - 5.1 mmol/L) 3.9 Chloride (98 - 107 mmol/L) 104 Carbon Dioxide (22 - 30 mmol/L) 26 Anion Gap (5 - 16) 8 BUN (9 - 20 mg/dL) 5 L Creatinine (0.7 - 1.2 mg/dL) 0.8 Estimated GFR (>60 ml/min) > 60 Glucose (65 - 99 mg/dL) 92 Calcium (8.4 - 10.2 mg/dL) 9.2 Phosphorus (2.5 - 4.5 mg/dL) 4.2 Magnesium (1.6 - 2.3 mg/dL) 2.1 Total Bilirubin (0.2 - 1.3 mg/dL) 1.0 AST (17 - 59 U/L) 29 ALT (21 - 72 U/L) 26 Albumin (3.5 - 5.0 g/dL) 4.2 Hematology CBC w Diff NO MAN DIFF REQ WBC (4.8 - 10.8 /CUMM) 8.6 RBC (4.70 - 6.10 /CUMM) 4.85 Hgb (14.0 - 18.0 G/DL) 14.6 Hct (42 - 52 %) 42.5 MCV (80.0 - 94.0 FL) 87.8 MCH (27.0 - 31.0 PG) 30.0 MCHC (33.0 - 37.0 G/DL) 34.2 RDW (11.5 - 14.5 %) 12.2 Plt Count (130 - 400 /CUMM) 176 MPV (7.4 - 10.4 FL) 8.9 Gran % (42.2 - 75.2 %) 66.3 Lymphocytes % (20.5 - 51.1 %) 21.8 Monocytes % (1.7 - 9.3 %) 7.6 Eosinophils % (0 - 5 %) 4.0 Basophils % (0.0 - 2.0 %) 0.3 Absolute Granulocytes (1.4 - 6.5 /CUMM) 5.7 Absolute Lymphocytes (1.2 - 3.4 /CUMM) 1.9 Absolute Monocytes (0.10 - 0.60 /CUMM) 0.7 H Absolute Eosinophils (0.0 - 0.7 /CUMM) 0.3 Absolute Basophils (0.0 - 0.2 /CUMM) 0 Intake & Output 11/13 1600 Intake Total 675 Output Total 300 Balance 375 Intake, IV 75 Intake, Oral 600 Number 350 Bowel Movements Output, Urine 300 Exam General Appearance: well developed/nourished, no apparent distress, alert, awake Head: atraumatic Neck: normal inspection, supple Respiratory: normal breath sounds, chest non-tender, no respiratory distress Cardiovascular: regular rate/rhythm Gastrointestinal: soft, non-tender Extremities: no edema Skin Temp/Moisture Exam: Warm/Dry Sepsis Skin Exam (color): Normal for Ethnicity Current Medications: Current Medications Sig/Nancy Start time Last Medication Dose Route Stop Time Status Admin Heparin Sodium 5,000 UNIT Q8 11/11 0600 AC 11/13 (Porcine) SC 1448 Lorazepam 0 Q1P PRN 11/11 0945 AC 11/12 IV 0419 Sodium Chloride 1,000 ML Q13H 11/12 1800 AC 11/13 IV 1647 Trimethobenzamide HCl 200 MG 4 TIMES/DAY PRN 11/11 1615 AC IM Impression/Plan Impression/Problem List Impression: 22 yo M with PMH of Bipolar disorder, suicide attempt, alcohol abuse, anxiety, presented with depression and suicide attempt with drug overdose. Patient states at about 4 pm, he drank 1 pint of Vodka. At about 7pm, he took about 50 pills of Lamictal 100 mg, about 50 pills of Wellbutrin XL 150 mg and 8 pills of Antabuse 250 mg. In ED, patient appears agitated. HR 114 (but as fast as 140s). K 3.4. Cr 0.8. Salicylates <1. Acetaminophen <10. Valproic acid <10. Urine tox screen negative. EtOH 120 Following in ICU for following problems: Drug overdose and suicidal attempt: -Patient took Lamictal, Wellbutrin and Antabuse. His QTC was 475 on EKG with QRS less than 120 ms. Patient isn't risk of arrhythmias with prolonged QTC. -Continued bicarbonate drip yesterday. -Seizure precautions -Aspiration precaution -Psychiatry recommendations. -Neurology recommendations. -Neurochecks -One-on-one sitter due to suicidal ideation. -EKG for QTc interval today is 441. -Gentle IV hydration at the rate of 75 mL/h. We will discontinue as patient is drinking orally. Alcohol abuse: -Patient reported that he drank 1 pint of vodka yesterday around 4 PM. Serum EtOH was 120 on presentation. -Patient also to 8 tablets of Antabuse 250 mg. Patient is complaining of nausea and vomiting -Continue CIWA protocol and Ativan 2 mg IV when necessary. -Thiamine supplementation and folic acid. Hypomagnesemia and hypokalemia:(improving) -Possibly due to alcohol use -Monitoring his magnesium and potassium level -This morning his potassium was 3.9 and this was repleted and magnesium was 2.1. History of anxiety, depression and bipolar disorder: -Follow-up recommendations of psychiatry for further medication. DVT prophylaxis: Mechanical and subcutaneous heparin CODE STATUS: Full code Problem List: 1. Overdose of anticonvulsant 2. Overdose of antidepressant 3. Hypokalemia 4. Prolonged Q-T interval on ECG Pain Ratin Pain Location: none Pain Plan: pain pathway Tomorrow's Labs & Rationales: cbc/icu bundle Plan DVT/Prophylaxis: mechanical, pharmacological
--- NOTE | 2017-11-13 13:53 | Transfer of Care Summary ---
Hospital Course Course Hospital Course: Reason of ICU admission: Patient was kept in ICU for close monitoring for arrhythmia and seizures in the setting of medication overdose and prolonged QTC. History of present illness: 22 yo M with PMH of Bipolar disorder, suicide attempt, alcohol abuse, anxiety, presented with depression and suicide attempt with drug overdose. Patient states at about 4 pm, he drank 1 pint of Vodka. At about 7pm, he took about 50 pills of Lamictal 100 mg, about 50 pills of Wellbutrin XL 150 mg and 8 pills of Antabuse 250 mg. In ED, patient appears agitated. HR 114 (but as fast as 140s). K 3.4. Cr 0.8. Salicylates <1. Acetaminophen <10. Valproic acid <10. Urine tox screen negative. EtOH 120 Interval events in ICU: Patient was closely monitored for seizures and arrhythmias during ICU course. He was given bicarbonate drip considering his prolonged QTC has we will not sure if patient took TCA antidepressant. Patient's QTC was monitored closely while in ICU. Neurology recommended to do MRI that the patient is stabilized for cerebellar vermis dysfunction considering his ataxia on presentation. Psychiatry was on board considering his history of anxiety, depression and bipolar disorder and suicide attempt. As patient wasn't not initially in a condition to talk to psychiatry so they will see the patient when he will be able to talk to them. Considering patient's alcohol abuse history he was placed on ciwa protocol with 2 mg Ativan IV when necessary. Patient condition improved his nausea and vomiting improved and he was started on regular diet. His CIWA scores remained low. His QTC came back to 441 today. She didn't have any arrhythmia or seizure episode during ICU. Mechanical ventilation: Never been intubated NIPPV: Never been on BiPAP/CPAP Antibiotic plan: None Catheters and lines plan: None Things to follow up on floor: -Please watch for alcohol withdrawal as patient has history of alcohol abuse although his CIWA remained low during ICU course. -Follow-up with neurology if patient needs MRI for cerebellar vermis dysfunction as patient has ataxia when he was admitted. -Follow-up with psychiatry for further plan for the patient after the discharge as patient has depression, anxiety and bipolar disorder and he had suicide attempt. Nutrition: Regular diet DVT prophylaxis: Mechanical and subcutaneous heparin CODE STATUS: Full code Assessment/Plan: Drug overdose and suicidal attempt: -Patient took Lamictal, Wellbutrin and Antabuse. His QTC was 475 on EKG with QRS less than 120 ms. Patient isn't risk of arrhythmias with prolonged QTC. -Continued bicarbonate drip yesterday. -Seizure precautions -Aspiration precaution -Psychiatry recommendations. -Neurology recommendations. -Neurochecks -One-on-one sitter due to suicidal ideation. -EKG for QTc interval today is 441. -Gentle IV hydration at the rate of 75 mL/h. We will discontinue as patient is drinking orally. Alcohol abuse: -Patient reported that he drank 1 pint of vodka yesterday around 4 PM. Serum EtOH was 120 on presentation. -Patient also to 8 tablets of Antabuse 250 mg. Patient is complaining of nausea and vomiting -Continue CIWA protocol and Ativan 2 mg IV when necessary. -Thiamine supplementation and folic acid. Hypomagnesemia and hypokalemia:(improving) -Possibly due to alcohol use -Monitoring his magnesium and potassium level -This morning his potassium was 3.9 and this was repleted and magnesium was 2.1. History of anxiety, depression and bipolar disorder: -Follow-up recommendations of psychiatry for further medication. DVT prophylaxis: Mechanical and subcutaneous heparin CODE STATUS: Full code
[2017-11-14 02:00] VITALS: BP 136/80
[2017-11-14 06:00] VITALS: BP 138/80
--- NOTE | 2017-11-14 06:35 | PN- Housestaff ---
See Addendum Subjective Follow-up For: Drug overdose alcohol abuse hypomagnesemia hypokalemia anxiety depression bipolar disorder Subjective: I visited and examined the patient is morning, he was lying back in his bed, alert and oriented 3, in no acute distress. He mentioned that he has no suicidal ideation, no major complaints was reported overnight by the nurse of the patient. Review of Systems Constitutional: Reports: see HPI. Objective Last 24 Hrs of Vital Signs/I&O Vital Signs Date Time Temp Pulse Resp B/P B/P Pulse O2 O2 Flow FiO2 Mean Ox Delivery Rate 11/14 1457 98.6 86 20 140/95 97 Room Air 11/14 0724 98.4 70 20 138/80 97 11/14 0600 98.4 70 20 138/80 11/14 0200 98.2 80 20 136/80 11/13 2030 98.6 82 20 140/80 96 Room Air Intake & Output 11/14 1600 11/14 0800 11/14 0000 Intake Total 520 760 Output Total Balance 520 760 Intake, IV 400 400 Intake, Oral 120 360 Patient 193 lb Weight Physical Exam General Appearance: Alert, Oriented X3, Cooperative, No Acute Distress Skin: No Rashes Skin Temp/Moisture Exam: Warm/Dry Cardiovascular: Regular Rate, Normal S1, Normal S2 Lungs: Clear to Auscultation, Normal Air Movement Abdomen: Normal Bowel Sounds, Soft, No Tenderness Extremities: No Clubbing, No Cyanosis, No Edema, Normal Pulses, No Tenderness/ Swelling Assessment/Plan Assessment: Drug overdose and suicidal attempt: -Patient took Lamictal, Wellbutrin and Antabuse. His QTC was 475 on EKG with QRS less than 120 ms. Patient isn't risk of arrhythmias with prolonged QTC. -Continued bicarbonate drip yesterday. -Seizure precautions -Aspiration precaution -Psychiatry recommendations. -Neurology recommendations. -Neurochecks -One-on-one sitter due to suicidal ideation. -EKG for QTc interval today is 441. -Gentle IV hydration at the rate of 75 mL/h. We will discontinue as patient is drinking orally. Alcohol abuse: -Patient reported that he drank 1 pint of vodka yesterday around 4 PM. Serum EtOH was 120 on presentation. -Patient also to 8 tablets of Antabuse 250 mg. Patient is complaining of nausea and vomiting -Continue CIWA protocol and Ativan 2 mg IV when necessary. -Thiamine supplementation and folic acid. Hypomagnesemia and hypokalemia:(improving) -Possibly due to alcohol use -Monitoring his magnesium and potassium level -This morning his potassium was 3.9 and this was repleted and magnesium was 2.1. History of anxiety, depression and bipolar disorder: -Follow-up recommendations of psychiatry for further medication. We are still waiting for psychiatry to see the patient. DVT prophylaxis: Mechanical and subcutaneous heparin CODE STATUS: Full code Problem List: 1. Drug overdose 2. Overdose of antidepressant 3. Alcohol abuse 4. Hypokalemia 5. Prolonged Q-T interval on ECG Pain Ratin Pain Location: Not applicable Pain Goal: Remain pain free Pain Plan: Not applicable Tomorrow's Labs & Rationales: As indicated
[2017-11-14 07:24] VITALS: BP 138/80
[2017-11-14 14:57] VITALS: BP 140/95
[2017-11-14 22:17] VITALS: BP 128/76
[2017-11-15 02:24] VITALS: BP 132/98
[2017-11-15 03:57] VITALS: BP 132/96
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
[2017-11-15 14:17] VITALS: BP 128/80
--- NOTE | 2017-11-15 17:37 | Patient Discharge Instructions ---
Discharge Instructions General Discharge Information You were seen/treated for: Drug overdose Special Instructions: Please follow up with your primary care physician within 1 week of discharge. Please follow up with psychiatry and IOP after you are discharged from inpatient psychiatry. Your medications for your mental health care will be restarted by your psyciatry team. Acute Coronary Syndrome Inclusion Criteria At DC or during hospital stay patient has or had the following: ACS DIAGNOSIS No Discharge Core Measures Meds if any: Prescribed or Continued at Discharge Meds if any: NOT Prescribed or Continued at Discharge Congestive Heart Failure Inclusion Criteria At DC or during hospital stay patient has or had the following: CHF DIAGNOSIS No Discharge Core Measures Meds if any: Prescribed or Continued at Discharge Meds if any: NOT Prescribed or Continued at Discharge Cerebrovascular accident Inclusion Criteria At DC or during hospital stay patient has or had the following: CVA/TIA Diagnosis No Discharge Core Measures Meds if any: Prescribed or Continued at Discharge Meds if any: NOT Prescribed or Continued at Discharge Venous thromboembolism Inclusion Criteria VTE Diagnosis No VTE Type NONE VTE Confirmed by (Test) NONE Discharge Core Measures - Per Current guidelines, there needs to be overlap - treatment for the first 5 days of Warfarin therapy. - If discharged on Warfarin prior to 5 days of - overlap therapy, the patient will need to be - assessed for post discharge needs including - *Post discharge parental anticoagulation - *Warfarin and/or parental anticoagulation education - *Follow up date to check INR post discharge At least 5 days overlap therapy as Inpatient No Meds if any: Prescribed or Continued at Discharge Note: Overlap Therapy is Warfarin and Anticoagulant Meds if any: NOT Prescribed or Continued at Discharge
--- NOTE | 2017-11-15 18:22 | PN- Housestaff ---
Isai Harris 11/15/17 1822: Subjective Follow-up For: Drug overdose alcohol abuse hypomagnesemia hypokalemia anxiety depression bipolar disorder Complaints: no complaints Subjective: Pt seen and examined this am. AAOx3. He was quiet, though answering questions. Gaze averting. No acute complains. No SOB, chest pain or vision changes. Normotensive, breathing comfortably on room air. Review of Systems Constitutional: Reports: see HPI. Objective Last 24 Hrs of Vital Signs/I&O Vital Signs Date Time Temp Pulse Resp B/P B/P Pulse O2 O2 Flow FiO2 Mean Ox Delivery Rate 11/15 1417 90 18 128/80 96 Room Air 11/15 0800 Room Air 11/15 0357 97.9 88 20 132/96 98 11/15 0224 97.7 83 20 132/98 98 11/14 2217 98.5 78 18 128/76 97 Room Air Intake & Output 11/15 1600 11/15 0800 11/15 0000 Intake Total 360 100 800 Output Total Balance 360 100 800 Intake, IV 0 Intake, Oral 360 100 800 Number 0 Bowel Movements Physical Exam General Appearance: Alert, Oriented X3, Cooperative, No Acute Distress HEENT: Atraumatic Cardiovascular: Regular Rate, Normal S1, Normal S2 Lungs: Clear to Auscultation, Normal Air Movement Abdomen: Normal Bowel Sounds, Soft, No Tenderness Neurological: Normal Gait, Normal Speech Current Medications: Current Medications Sig/Nancy Start time Last Medication Dose Route Stop Time Status Admin Heparin Sodium 5,000 UNIT Q8 11/11 0600 AC 11/15 (Porcine) SC 1428 Lorazepam 0 Q1P PRN 11/11 0945 AC 11/12 IV 0419 Trimethobenzamide HCl 200 MG 4 TIMES/DAY PRN 11/11 1615 AC IM Assessment/Plan Assessment: Mr. Hooper is a 22 y/o M with H bipolar disease and alcohol abuse, with hospitalizations for both, and one prior suicide attempt by medication ingestion , who was brought in by ambulance for suicide attempt by ingestion of lamotrigine, bupropion, alcohol, and disulfiram. ASSESSMENT: #Overdose toxicity #Bipolar disease #Electrolyte derangements #Alcohol abuse. #Overdose toxicity Patient took Lamictal, Wellbutrin and Antabuse. His QTC was 475 on EKG with QRS less than 120 ms. He has no acute symptoms today. -Seizure precautions -Aspiration precaution -Psychiatry recommendations. -Neurology recommendations. -Neurochecks -One-on-one sitter due to suicidal ideation. -Off fluids Alcohol abuse: -Patient reported that he drank 1 pint of vodka prior to admission. Serum EtOH was 120 on presentation. -Patient also to 8 tablets of Antabuse 250 mg. Patient is complained of nausea and vomiting, now resolved. -Continue CIWA protocol and Ativan 2 mg IV when necessary. -Thiamine supplementation and folic acid. #Electrolytes derangement, improvin -Possibly due to alcohol use -Monitoring his magnesium and potassium level and replenishing as needed History of anxiety, depression and bipolar disorder: -Follow-up recommendations of psychiatry for further medication. Psych to see patient today. FULL CODE DVT prophylaxis: Mechanical and subcutaneous heparin Problem List: 1. Drug overdose 2. Overdose of antidepressant 3. Alcohol abuse Pain Ratin Pain Location: N/A Pain Goal: Remain pain free Pain Plan: PER [facility] Labs & Rationales: . Dio Valencia MD 11/15/17 3965: Attending MD Review Statement Attending Statement Attending MD Statement: examined this patient, discuss w/resident/PA/RETORT OR CONDENSER PRESS OPERATOR, agreed w/resident/PA/RETORT OR CONDENSER PRESS OPERATOR, reviewed EMR data (avail), discussed with nursing, discussed with case mgmt, amended to note Attending Assessment/Plan: The patient was seen and discussed with house staff. Agree with above assessment. The patient is medically stable for transfer to [facility]/Psychiatry. Appreciate psych input.
--- NOTE | 2017-11-15 18:24 | Discharge Summary ---
Visit Information Visit Dates Admission Date: 11/11/17 Discharge Date: 11/15/17 Hospital Course Course Attending Physician: Dio Valencia MD Primary Care Physician: Patient Has No Primary Care Dr Consulting Request: 1 Consulting Specialty: Psychiatry Consulting Request: 2 Consulting Specialty: Neurology Hospital Course: Patient is a 22 y/o male with PMH of bipolar disorder, suicide attempt, alcohol abuse, anxiety and depression presenting to [facility] after an intentional suicide attempt. Patient reported drinking 1 pint of Vodka after which he ingested approximately 50 pills of lamictal 100mg tablets, 50 pills of Wellbutrin XL 150mg tablets and 8 pills of Antabuse 250mg tablets. On presentation in the ED: Vitals: Tmax: 99.5, HR: 114-146, BP: 139/72, RR: 16-20, Saturating at 96-99% on room air GEN: Patient was agitated, awake alert and oriented, speech was slowed, dysarthritic, flat SKIN: diaphoretic HEENT: LILI, EOMI CVS: tachycardic, S1 and S2 heart sounds, without murmurs LUNGS: clear to ausculation bilaterally ABDOMEN: soft nt/nd bs+ EXTREMITY: no lower extremity edema NEURO: motor strength 5/5 all extremities, CN 2-12 intact, all muscle groups spastic without rigidity, global ataxia with inability to perform cerebellar testing, gag reflex present, gait not assessed EKG was sinus tachycardia QRS <120ms and QTc from 430-475, chemistries were notable for hypokalemia of 3.4 but otherwise unremarkable. Chest x-ray was normal. Patient was initially admitted to ICU to closely monitor for seizures and arrhythmias. He was started on a bicarbonate drip due to prolonged QTc and due to concerns of taking his TCA antidepressant. Patient was evaluated by neurology due to unsteady gait. Psychiatry was on board due to the suicide attempt and extensive psychiatric history. Patient was initially placed on CIWA protocol due to his extensive alcohol history. CIWA scores remained low during admission. Patient did not have any arrhythmia or seizure and once stabilized was transfered to the general medicine floor. Patient's unsteady gait resolved and likely was secondary to his drug overdose. No further imaging was pursued. Patient 's psychiatric medications were held. Once medically stable patient was reassessed by psychiatry and due to his intentional suicide attempt, impulsive behavior and extensive psychiatric history was transferred to [facility] for inpatient psychiatric care. Allergies: Coded Allergies: No Known Allergies (05/08/17) Pertinent Lab Results: SERVICE DATE: 11/11/17 EXAM TYPE: RAD - XRY-PORTABLE CHEST XRAY EXAMINATION: CHEST 1 VIEW CLINICAL INFORMATION: Vomiting. Altered mental status. COMPARISON: None. TECHNIQUE: An AP view of the chest is provided. FINDINGS: The cardiac silhouette is not enlarged. The mediastinal and hilar contours are unremarkable. There are neither pleural effusions nor pneumothoraces. There are no consolidations. The osseous structures are unremarkable. IMPRESSION: No evidence for acute disease. SERVICE DATE: 11/11/17 EXAM TYPE: RAD - XRY-PORTABLE CHEST XRAY EXAMINATION: XR PORTABLE CHEST CLINICAL INFORMATION: Chronic overdose, alcohol abuse and vomiting. Assess for aspiration pneumonia. COMPARISON: None. TECHNIQUE: Portable frontal view of the chest was obtained. FINDINGS: The lung diaz are well expanded and appear clear bilaterally. The cardiac silhouette is normal. There are no pleural effusions or pneumothorax. The central pulmonary vasculature is normal. The hilar regions appear normal. There are no acute osseous findings. There are multiple monitor leads overlying the chest. IMPRESSION: 1. There are no acute cardiopulmonary findings. Disposition Summary Disposition Principal Diagnosis: Drug Overdose 2/2 Intentional Suicide Attempt Additional Diagnosis: History of Bipolar Disorder, Anxiety, Depression and Alcohol Abuse Discharge Disposition: Inpatient Psychiatry Discharge Instructions General Discharge Information Code Status: Full Code Patient's Diet: Regular DIet Patient's Activity: Self-Limited Follow-Up Instructions/Appts: Follow up with primary care physician Medications at Discharge Discharge Medications: Stop taking the following medications: Naproxen (Naprosyn) 500 MG TABLET ORAL TWICE DAILY as needed for pain Qty = 60 Amoxicillin/Potassium Clav (Augmentin 875-125 Tablet) 875 MG-125 MG TABLET ORAL TWICE DAILY Qty = 20 Continue taking these medications: Lidocaine (Lidoderm) 5 % ADH..PATCH 1 Patch On the skin DAILY as needed for pain Qty = 30 Instructions: may wear up to 12 hours Comments: NOT GIVEN IN HOSPITAL Esomeprazole Magnesium (Nexium) 20 MG CAPSULE.DR 1 Capsule ORAL DAILY Qty = 30 Comments: NOT GIVEN IN HOSPITAL Copies To: Dio Valencia MD Attending Review Statement Documenting Attending: Dio Valencia MD Other Findings: The patient was seen and agree with the above summary of care and plan. The patient is to be transferred to [facility]/Inpatient Psychiatry here at [facility] for further psychiatric evaluation.
== END 2017-11-15 20:44 | DRG 817 ==
LOC: ERH 22:36 → ERHI 11-11 03:12 → CRI 11-11 03:12 → ENRESERV 11-11 05:26 → CRI 11-11 06:32 → ENRESERV 11-11 07:06 → ENTRNSPT 11-13 11:53 → EDTRNSPT 11-13 12:19 → EDTRNSPTSTS 11-13 12:19 → 2NA 11-13 12:33 → CMPTRNSPT 11-13 13:13 → 2NA 11-14 11:49
PROVIDERS: Emergency Medicine; Preventive Medicine Public Health & General Preventive Medicine; Student in an Organized Health Care Education/Training Program
DX: T42.6X2A Poisoning by other antiepileptic and sedative-hypnotic drugs, intentional self-harm, initial encounter (principal); F41.8 Other specified anxiety disorders; Y90.6 Blood alcohol level of 120-199 mg/100 ml; F10.121 Alcohol abuse with intoxication delirium; E87.6 Hypokalemia; E83.42 Hypomagnesemia; T43.292A Poisoning by other antidepressants, intentional self-harm, initial encounter; Z60.8 Other problems related to social environment; Z91.19 Patient's noncompliance with other medical treatment and regimen; F41.9 Anxiety disorder, unspecified; Z87.891 Personal history of nicotine dependence; R27.0 Ataxia, unspecified; R94.31 Abnormal electrocardiogram [ECG] [EKG]; F31.9 Bipolar disorder, unspecified; Z91.5 Personal history of self-harm
CPT/HCPCS: 2NAP; CCU; 36415; 71045; 80307; 81003; 82436; 93005; 93010; 96360; 99291; G0480; J0610; J1644; J3250; J7060

== ENCOUNTER 2017-11-15 14:10 | Inpatient (IN) | payer OTHER ==
[~2017-11-15] VITALS: Ht 185.4 cm; Wt 79.1 kg
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
[2017-11-15 21:10] VITALS: BP 155/95
[2017-11-15 21:13] VITALS: BP 155/95
--- NOTE | 2017-11-16 00:27 | PN- Att Addend ---
Attending Addendum Attending Brief Note 22M PMH bipolar disorder and EtOH abuse admitted initially to medicine service with suicide attempt by ingestion of Lamictal, Buproprion, EtOH, and Antabuse. Patient was treated with supportive care and recovered well. Treated with [facility] protocol for alcohol abuse but did well. Transferred to [facility] for further management after being deemed medically stable for discharge. 1. Intentional drug overdose 2. Suicide attempt Plan - Admit to [facility] - Management by psychiatry - Continue current medications - Ambulatory for DVT PPx - Re-consult medicine PRN
[2017-11-16 07:52] VITALS: BP 137/71
[2017-11-16 09:02] VITALS: BP 137/71
[2017-11-16 12:29] VITALS: BP 148/72
--- NOTE | 2017-11-16 14:50 | CPS PROVIDER INIT ASMT PSYCH ---
Psychiatric Admission Ski Patroller's Note Reviewed: Yes Patient Seen and Examined: Yes Identifying Information: Told within 22-year-old male with dark rimmed glasses Chief Complaint: "There are a lot of things and need to work on and change" Reaction to Hospitalization: Agreeable History of Present Illness Onset of Illness: Patient has been in treatment since the age of 14 Circumstances Leading to Admission: Impulsive overdose was intoxicated Problem(s) Justifying Need for Admission: Suicide attempt Other HPI: The patient reports that prior to admission he was under a lot of stress, mostly related to his housing situation. He reports that his mood is chronically "up and down". He reports taking and impulsive overdose. He did not know he was going to take the overdose when he woke up. He had an argument with his friend around his housing situation and at 4 PM decided to buy alcohol. He drank a pint of vodka and about 15 minutes. He was upset with himself or drinking. He impulsively overused his medications thinking "this was a way to stop how I was feeling and ". He then texted a friend he had not talked to him in some time as he "wanted to talk to someone it was not connected with". He believes he said something alarming so that she called the police. The patient did not feel any medication effects for about 5 hours and did not initially disclose that he had overdosed. Today the patient states "I do not want to ". He also reports "I want to not feel the way I feel sometimes". He reports his mood is depressed. Sleep has been poor with initial insomnia, appetite and concentration are normal. Energy is poor. He is still able to enjoy things. There is sun diurnal variation of mood with nighttime being the worst. He denies all psychotic symptoms. Please see substance abuse history of alcohol historyRegarding stressors the patient has been living with his roommate and her boyfriend. His parents were helping him with rent but his mother got laid off in September. His roommates are allowing him to stay there rent free but he feels he is being a burden. He has been offered 18 month red-free housing through [facility] but is ambivalent about it due to its location. Personal history the patient was raised in [place] with both parents. His father has bipolar 1 disorder. 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 They are not very close. His father was frequently angry when the patient was young. He was critical and unpredictable. The patient's mother is a 60-year-old research assistant service manager who he describes as anxious and overbearing. He says they are both "nice people" but they are not close. The patient is the middle of 3 siblings. His oldest brother is 28 and lives in [place] where he works as a safety scientist. The patient says "we stop talking when he moved away". He is a 21-year-old brother in college and again they are not very close. The patient describes his childhood as "a little below average". This was largely due to difficulties with his father. He denies that his parents was physically abusive. In school he did well and was often in gifted programs until he reached high school. He was expelled from high school when he was arrested for selling cannabis. He was treated outside for 18 months and graduated from there. 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 Supposedly while in a manic episode his father impulsively decided to change the name of the restaurant and moved location. Both he and his father were heavily using benzodiazepines at this time. The business folded in 9 months. The patient says his substance abuse increased following this. 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 He has not worked since November 2016 as "I have been trying to hold together". The patient is heterosexual but says he has had no serious relationships. He is never and has no children. 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 He was admitted to an intensive outpatient program at [facility] at the age of 14 for cannabis dependence. He was first hospitalized at the age of 17 at [facility] for substance abuse and depression. He says he has been hospitalized 8 times prior to this. The last time he was hospitalized was in September of this year. He has been prescribed multiple medications but says "I never gave any of them a chance except for neutral". In September of this year he was admitted to [facility] for alcohol detox and depression. He was referred to [facility] where he is currently in treatment. The patient says that this is his first suicide attempt. He started cutting at the age of 18 and last cut in spring of this year. History of Suicide Attempts or Gestures Please see psychiatric history Substance Abuse History: Patient started drinking alcohol at the age of 13 and it became a problem at 16. He was sober from the beginning of January 2017 to the beginning of August 2017. The first 3 months he was hospitalized at [facility]. He initially enjoyed sobriety but as time progressed "it got harder". He went on a 3 week binge in August and was admitted to rehab program. He reports that he had been sober since the beginning of October until his relapse at the time of presentation. The patient has had roughly 5 admissions for alcohol detox and has been to 3 rehab programs, 2 of which he completed. He is tried both acamprosate and naltrexone with poor effect. He has found disulfiram helpful. He is not connected with . The patient reports abusing benzodiazepines between the ages of 13 until around 19. He had 118 month period of sobriety. He has not used them in 3 years. The patient reports that he has also experimented with marijuana, cocaine, opiates, stimulants, shrooms, LSD and ecstasy. Allergies: Coded Allergies: No Known Allergies (05/08/17) Home Med List: Disulfiram 250 mrem p.o. daily Gabapentin 800 mg p.o. 3 times daily Lamictal 100 mg p.o. daily Bupropion XL 300 mg p.o. daily - Include any medical condition(s) that may - impact the patient's recovery/remission Past Medical History: None reported Past History Medical History Neurological: NONE EENT: NONE Cardiovascular: NONE Respiratory: NONE Gastrointestinal: NONE Hepatic: NONE Renal: NONE Musculoskeletal: NONE Psychiatric: anxiety, bipolar disease, depression Endocrine: NONE Blood Disorders: NONE Cancer(s): NONE METAPHYSICS TEACHER/Reproductive: NONE History of MRSA: No History of VRE: No History of CDIFF: No Surgical History Surgical History: TONSILS, WISDOM TEETH Psychiatric Family/Social Hx Family History Psychiatric Illness: Patient's father was diagnosed with bipolar disorder and is maintained on lithium and Lexapro postop mother diagnosed with depression. Substance Use: Father is also dependent on alcohol and benzodiazepines Suicides: Patient denies Other Family History: Patient denies Social History Living Situation: Lives with roommates. Unable to pay rent. Significant Relationships (family/friends): Has supportive sober friends Education: Per biopsychosocial Vocation/Occupation: Unemployed Legal: Denies Healthly Behaviors Screening Tobacco Screening Tobacco Use from ED Docu: Never used - If tobacco counseling indicated - the following topics are required. - #1 Recognizing dangerous situations. - #2 Coping Skills. - #3 Basic information about quitting. Status of Tobacco Cessation Counseling: Not Applicable Cessation Med Status Not Applicable Alcohol Screening - ETOH screen POS if BAL >=80 or Audit-C>= M4/F3 Audit-C Score from Diag Assess: 9 Blood Alcohol Level: Lab Serum Alcohol 120.0 MG/DL 11/10/17 2320 Alcohol Use Screening Results: Pos per Audit C &/or BAL - If ETOH counseling indicated - the following topics are required. - #1 Express concern about the patient's - drinking at unhealthy levels, include informing - of national norms for moderate drinking: - men <= 14 drinks/week, max 4 drinks/occasion - women <= 7 drinks/week, max 3 drinks/occasion - #2 Providing feedback, including linking alcohol to - negative physical effects (liver injury, hypertension) - negative emotional effects (relationship problems and - depression) - negative occupational consequences (reduced work - performance) - #3 Advising the patient to abstain from alcohol or - to drink below national norms for moderate drinking - (as listed above). Status of ETOH Use Counseling: #1, #2 AND #3 Completed. Metabolic Screening - Screen if on a Neuroleptic Medication - Metabolic screening should include: - Blood Pressure, BMI, Glucose or Hgb A1c, & a - Lipid profile from within the past 365 days. Metabolic Screening () Not Applicable, patient not on a neuroleptic. OR () Patient on a neuroleptic(s) . Enter below results for Hemoglobin A1C, and lipid panel if obtained during the last 365 days. BMI: 23.000 Blood Pressure: 148/72 Laboratory Results From [facility] (If applicable): Exam and Plan Mental Status Examination Ambulation Status: Gait steady Appearance: Tall, thin, wearing dark rimmed glasses Attitude towards examiner: Pleasant, appropriate Psychomotor activity: Normal Behavior: Appropriate Quality of speech: Normal rate, rhythm, volume and tone Affect: Flat Mood: Depressed Suicidal Ideation: None Homicidal Ideation: None Hallucinations: None Paranoid/Delusional Material: None Difficulties with thought organization: none Insight: Good Judgment: Unimpaired Orientation: Alert and oriented 3 Cognition: Grossly intact Memory Function: Grossly intact Estimate of intellectual functioning: Average Assets/Strengths Patient Identified Assets/Strengths: Motivated, supportive friends Impression/Plan Impression and Plan: 22-year-old male admitted following an impulsive overdose whilst intoxicated. Lengthy psychiatric history with extensive substance abuse. Father positive for bipolar disorder and substance abuse. Multiple trials of medication with erratic adherence and minimal effectiveness. 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 Following discussion we have agreed to start him on lithium. Possible side effects were explained to him as well as the need to ensure adequate fluid intake and stop the medication and contact his prescriber should he experience fluid loss through vomiting or diarrhea. - release of information would be obtained and his outpatient providers will be contacted -Family meeting will be offered -Referral to an intensive outpatient level of care on discharge - Factors that would help patient function - in a less restrictive setting. Factors: Stable mood, motivation for sobriety,
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
[2017-11-16 16:30] VITALS: BP 121/74
--- NOTE | 2017-11-16 17:46 | SOCIAL WORKER PROG NOTE PSYCH ---
Social Work Progress Note Progress Note Chilo was in his room resting when I prompted him to meet this afternoon. He did get up. He shared that he impulsively swallowed a bunch of pills while intoxicated. Stated he was triggered by an argument with a friend. Said he has been thinking about moving out of his current living situation and moving into another area and this caused a conflict between him and the friend who apparently didn't feel it was a good idea. He then shared that this caused some emotion over his own internal conflict over not being able to progress and become more independent. He feels he should be more progressed in his goals at this point. Stated he has thought more about his living situation since the the overdose and he doesn't feel moving would be a good thing for him right now and is happy to stay where he is. He currently lives with 2 roommates in [place]. He reports those relationships are fine. He is connected to Care in [place]. He shared that his clinician had proposed him moving into the ART program in [place]. At this point he sounds scared to make that move. He stated he doesn't want to change his providers and is happy with his current therapist. He stated he is happy that he didn't and said he really didn't want to . He called his friend and told her he was having suicidal thoughts after he ingested the pills. She called the police. He didn't tell anyone he ingested the pills though until he got to the hospital. He has a hx of depression and anxiety. Denies auditory hallucinations. Reports family is supportive, but he doesn't want them involved. He hasn't told his parents about his hospitalization and what happened. He doesn't want them to know at this point. He said he is glad to be getting help and is okay with being on a trial of [place] to see if it helps. He has been on mood stabilizers in the past. I asked if he would sign a release for Care? He said he would like to talk to his therapist first before us calling them. He said he left her a message this morning. I told him we will discuss it further tomorrow. Reports feeling okay today and stated he feels surprisingly well after all of this.
[2017-11-16 19:29] VITALS: BP 144/85
[2017-11-16 19:31] VITALS: BP 144/85
[2017-11-17 08:21] VITALS: BP 134/78
--- NOTE | 2017-11-17 13:44 | CP SOUTH PROGRESS NOTE PSYCH ---
Psych (Inpt) Progress Note Progress Note Include the following elements, when applicable: Involvement in the active treatment of the patient with behavioral observations of the patient and the patient's response to the treatment. Review of the ongoing treatment process in the context of the treatment plan. Indication of how multi-disciplinary staff members are carrying out the treatment plan. Plans for future interventions and recommendations for revision of the treatment plan. Liaison with other physicians/providers. Progress Note: Patient was discussed at team meeting. "I feel stupid and embarrassed" The patient feels ashamed of events prior to admission "especially when I did not want to ". He describes his mood as "pretty good". Sleep is good, appetite is normal. He is spending his days reading fantasy books. He is tolerating his medication well with no side effects. He is somewhat lacking in energy which may be result of his protracted medical admission. There are no psychotic symptoms. The patient reports finding groups "frustrating". Mental status examination reveals a thin 22-year-old male wearing glasses. He was encountered lying in bed. He was alert and oriented 3 and his gait was steady. Eye contact was fair. Speech was normal in rate, rhythm and volume. Tone was monotonous. He described his mood as "pretty good". His affect was a little flat and intermittently superficial. The patient has a somewhat inappropriate have swelling his face for much of the interview. He was not suicidal or homicidal. Thought process was normal in tempo, stream and form with no delusions or obsessions. Attention and concentration are good. There is no perceptual abnormality. Impulse control is good. Intelligence level is average, fund of knowledge average, use of language appropriate. Recent and remote memory are intact. Patient's insight is fair, judgment unimpaired. Current medications Matheny 300 mg p.o. a.m. and at bedtime Disulfiram 250 mg p.o. daily Gabapentin 800 mg p.o. 3 times daily Omeprazole 20 mg daily before meals Assessment: The patient is somewhat superficial. He describes himself as "liking to poke fun in life and not take to seriously". At the same time he is frustrated as his perceived inability to make progress through his life. Discussed the seriousness of his suicide attempt prior to admission which the patient sees as "good reason not to drink". Discussed plans for moving forward with his life. The patient has elected not to move to the [facility] program housing as it is too isolating" away from my supports". His supports however appear to be limited to his roommate. The patient is elected not to tell his parents he is here. Reason for ongoing admission: The patient made a serious suicide attempt prior to admission. He has just been started on lithium as a mood stabilizer. He is at risk of suicide if discharged prematurely. 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 Dose will likely need to be adjusted. -Family meeting offered and declined -Continue individual and group psychotherapy. The patient's insight is limited. -The patient will be referred to LEEANNA PRITCHARD at [facility] on discharge. -Tentative discharge date is November 23.
--- NOTE | 2017-11-17 15:04 | SOCIAL WORKER PROG NOTE PSYCH ---
SukiShon benavides 11/17/17 1456: Social Work Progress Note Progress Note I Shon Adhikari ([facility] analysis internship) met with Chilo this afternoon after group to meet him and check in, The patient appeared to have a positive affect. He reported being in a good mood. He has been spending time reading books from home. The patient did not talk with his therapist from [facility] but was agreeable to sign a release for [facility] so the social science research assistant can communicate about the [facility] care treatment plan. When exploring the patient's feelings about having a family meeting he refused but did say he would be willing to do meeting with a friend. This telegraphic typewriter installer explored the patients behaviors and thoughts prior to his suicide attempt. The patient reports that he was lying in bed frequently and was drunk. He described having feelings of hopeless and helplessness. He did not believe or think that he was going to when he made the suicide attempt in fact he reports thinking this can't happen to me. Once the pills were ingested he experienced illness and spastic movements in his body. He was reacting to the stress in life such as not having an income to support himself. The patient intends to returning to living in the house he resided in before with his roommates. He expressed that taking the ART housing would cause too much stress to him which would not be beneficial. He stated he would have no support system and would have to adjust to living in different area. He expressed that one way he would prevent future suicide attempts would be to communicate his feelings with his roommates and call crisis line. He did not report having side effects from the medications he is on.
--- NOTE | 2017-11-17 15:42 | SOCIAL WORKER PROG NOTE PSYCH ---
Social Work Progress Note Progress Note Received a call from Sandra at [facility] in [place] [phone] [phone]. She is the [facility] liason. I told her that there was no release at this time. A release was signed later in the day.
[2017-11-17 16:11] VITALS: BP 127/74
[2017-11-17 20:10] VITALS: BP 136/80
[2017-11-17 20:12] VITALS: BP 136/80
[2017-11-18] VITALS (7 sets, daily range): BP systolic 129–173; BP diastolic 51–97
--- NOTE | 2017-11-18 09:44 | SOCIAL WORKER PROG NOTE PSYCH ---
Social Work Progress Note Progress Note The services requested require additional review. You will be contacted regarding the status of this request if further information is needed. An authorization decision will be made within the required timeframes and details of that decision may be found under the member's authorization history. Member Name Member ID Member Subscriber Name Subscriber ID DENISE PLATA [id number] HOAHAOISMVANESSA PLATA [id number] Pended Authorization # Client Authorization # Type of Request [id number] CONCURRENT Date of Admission/ Start of Services Requested From Submission Date 11/15/2017 11/18/2017 11/18/2017 Level of Service Type of Service Level of Care Type of Care INPATIENT/HLOC Mental Health Inpatient Inpatient [facility] - Inpatient Hospital Reason Code P76 Provider Name & Address Provider ID Provider Alternate ID NPI # for Authorization LOBO ALBRECHT [id number] [place] [id number]
--- NOTE | 2017-11-18 16:11 | SOCIAL WORKER PROG NOTE PSYCH ---
KatherinepriyaShon benavides 11/18/17 1542: Social Work Progress Note Progress Note I Shon Mruphyvalery (DIRECTOR OF ROOMS Sack Repairer) along with Gaby Lange [facility] met with Chilo this afternoon. He reported being in an okay mood and sleeping alright. He appeared tired and restless. He reported that he attended some groups but expressed some frustration being hospitalized again. He felt that he could only learn so much on the unit. Chilo was agreeable to do an IOP with [facility]. The ART housing option was discussed and he is still hesitant and feels that he is not ready to make that change. Chilo stated that his roommates are supportive and doesn't want someone monitoring him that is not close with. He expressed transportation concerns about getting to appointments and was informed of public transportation in the city. Chilo expressed having a good relationship with the roommates seven year old son who lives at the house on weekdays. Caring for the roommate's son gives him a sense of purpose. The patient mentioned that he cannot work due to his current mental state being a barrier. When looking into career interests Chilo identified wanting to learn sign language. This resume writer spoke with Heather on the phone from [facility] who informed me that Chilo did not participate in several groups and was drinking. [facility] suggested that Chilo consider an inpatient substance abuse treatment. I informed Heather that this was not looked into here on the unit with the patient. As of right now the patient has a clinical appointment scheduled for November at ten am. Chilo has a medical appointment on December 05 at 1:[address] Mensah.
--- NOTE | 2017-11-18 16:45 | CP SOUTH PROGRESS NOTE PSYCH ---
Psych (Inpt) Progress Note Progress Note Include the following elements, when applicable: Involvement in the active treatment of the patient with behavioral observations of the patient and the patient's response to the treatment. Review of the ongoing treatment process in the context of the treatment plan. Indication of how multi-disciplinary staff members are carrying out the treatment plan. Plans for future interventions and recommendations for revision of the treatment plan. Liaison with other physicians/providers. Progress Note: The patient's case was discussed at team. I met with the patient individually. The patient was encountered in his room lying on his bed reading a book. He reported that he is disappointed that he is here for holiday weekend. Sleep and appetite are normal. Denies being suicidal or homicidal. Discussed factors that may have led to his suicide attempt. The patient reports that he is waiting for Assistance and to get on disability. He cannot think of a job that he would like to do. He would like to "live in [place] and be self-sustaining ". He reports that he does "not want to live by societies rules". Discussed proactive ways that the patient could move forward in his life was maintaining his individuality. Patient strongly encouraged to use his time in hospital to examine how he can move forward with his life. Although the patient reports that he does not want to enter [facility] housing because he does not want to lose "all my supports", at the only support he can name is a roommate. He lives with her and her boyfriend. The patient is not close to his family and has elected not to tell his parents that he is here. His roommate is not allowed to visit per hospital policy as she was a patient here very recently. Mental status examination revealed a 22-year-old male who looked his stated age lying on his bed reading a fantasy book. He was alert and oriented 3. Gait was steady. He was somewhat tearful discussing the fact that he was here for the weekend. Eye contact was good, improved. Speech was normal in rate, rhythm , volume and tone. He described his mood as "okay", his affect was flat. He was not suicidal or homicidal. Thought process was normal in tempo, stream and form. There are no delusions or obsessions. Attention and concentration are fair. There is no perceptual abnormality. Impulse control is good. Intelligence level is average, fund of knowledge average, use of language appropriate. Recent and remote memory are intact. Patient's insight is fair. He is somewhat unmotivated and apathetic. Judgment is unimpaired. Medications: [place] 300 mg p.o. a.m. and at bedtime Disulfiram 250 mg p.o. daily gabapentin 800 mg p.o. 3 times daily Assessment: 22-year-old male with likely diagnosis of bipolar disorder as well as alcohol dependence and anxiety. The patient presents with affective blunting, apathy and he is somewhat a volitional. There is no present or past psychosis. Not very engaged in his treatment. Sleep and appetite are normal and he is somewhat participatory in groups. Treatment plan: -Continue lithium at 300 mg p.o. twice daily -[place] level ordered for November 21 -Likely increase of lithium to 450 mg p.o. twice daily following lithium draw -The patient will follow up at [facility]. He has an appointment for their IOP program.
[2017-11-19 08:01] VITALS: BP 142/93
[2017-11-19 08:03] VITALS: BP 142/93
[2017-11-19 12:21] VITALS: BP 138/84
--- NOTE | 2017-11-19 16:17 | CP SOUTH PROGRESS NOTE PSYCH ---
Psych (Inpt) Progress Note Progress Note Include the following elements, when applicable: Involvement in the active treatment of the patient with behavioral observations of the patient and the patient's response to the treatment. Review of the ongoing treatment process in the context of the treatment plan. Indication of how multi-disciplinary staff members are carrying out the treatment plan. Plans for future interventions and recommendations for revision of the treatment plan. Liaison with other physicians/providers. Progress Note: Case was discussed with nursing in AM. Chilo is overall stable. Feels " fine." regular patterns sleep and appetite. Tolerating medications .Keeps to himself most of time. Likes to read books. Looking forward to discharge next week. Pt mentions he started to have a rash over his nose and nasolabial folds over past 2 days. Non painful or itchy. Non other areas of body compromised. Pt denies any h/o psoriasis or seborrheic dermatitis. VS WNL MSE Young male. fairly groomed. Cooperative. Reactive affect. No SI/HI. No AVH organized, linear logical. Fair insigth and judgment. AAOX3. A/P 22 y/o Male. Bipolar DIsorder/ ETOH Use Dx. Hwere s/p OD on prescribed meds. Improving with reactive affect. Future oriented. Overall toleratign meds well. However notcing an increase rash in faical area. Coincides with introduction of lithium. [place] is known to exacerbate psoriatic rashes or acneiform rashes. Will monitor facial rash for now. Continue same tx regimen. Li level for tuesday.
[2017-11-19 19:40] VITALS: BP 132/90
[2017-11-20 08:22] VITALS: BP 128/74
[2017-11-20 19:52] VITALS: BP 143/87
--- NOTE | 2017-11-20 20:08 | CP SOUTH PROGRESS NOTE PSYCH ---
Psych (Inpt) Progress Note Progress Note Include the following elements, when applicable: Involvement in the active treatment of the patient with behavioral observations of the patient and the patient's response to the treatment. Review of the ongoing treatment process in the context of the treatment plan. Indication of how multi-disciplinary staff members are carrying out the treatment plan. Plans for future interventions and recommendations for revision of the treatment plan. Liaison with other physicians/providers. Progress Note: Case discussed with charge nurse. Chilo hammer. In good spirits. Engaged with unit activities. Tolerating meds well. facial rash improved. Regular patterns sleep and appetite. Asking about Li level. MSE Young male. well groomed good eye contact. full range affect. No SI/HI NO AVH organized, linear. logical AAOx3 I/J Good. A/P Chilo a 22 y/o Male.BPAD. / EOTH Use Dx. s/p OD. Stable. tolerating meds. Will be checking lithium level tomorrow AM to decide on adjustment of dose. COntinue same med regimen.
[2017-11-21 08:37] VITALS: BP 142/86
--- NOTE | 2017-11-21 12:56 | CP SOUTH PROGRESS NOTE PSYCH ---
Psych (Inpt) Progress Note Progress Note Include the following elements, when applicable: Involvement in the active treatment of the patient with behavioral observations of the patient and the patient's response to the treatment. Review of the ongoing treatment process in the context of the treatment plan. Indication of how multi-disciplinary staff members are carrying out the treatment plan. Plans for future interventions and recommendations for revision of the treatment plan. Liaison with other physicians/providers. Progress Note: Case discussed with charge nurse in AM. Doing well. In behavioral control . Tolerating medications well. Facial rash is much better. Good sleep and appetite. Asking about discharge process. Discussed results of his Li level at 0 ,4. WIll adjust dose accordingly. MSE Young male. fairly groomed. Fair eye contact. Cooperative full range affect. No SI/HI.No AVH organized, linear AAox3 I/J Good. A/P 22 y/o WM Bipolar Dx. EOTH Use Dx. Good improvement. Tolerating med regimen. Will adjust Li to 300 mg QAM/450 mg QHS. Other meds will continue same.
[2017-11-21 19:49] VITALS: BP 136/92
[2017-11-22 07:54] VITALS: BP 147/76
--- NOTE | 2017-11-22 08:08 | CP SOUTH PROGRESS NOTE PSYCH ---
Psych (Inpt) Progress Note Progress Note I reviewed the patient's record including Dr. Shaver's notes The patient's inpatient treatment plan and aftercare plans were discussed and the treatment team meeting this morning. Vital Signs Date Time Temp Pulse B/P B/P Pulse O2 FiO2 11/22 0754 98.0 76 147/76 11/21 1949 98.5 96 136/92 11/21 0837 97.5 91 142/86 The patient was interviewed with Gaby Lange LCSW. The patient reported that he has been doing well over the weekend. He reported that he was a little bit bored. He denied having any thoughts of suicide over the long Labor Day weekend. He was calm and cooperative. He seemed to be in good spirits. He showed good eye contact. He was in good behavioral control. He reported that he is tolerating his current medications without any major side effects. He reported that his sleep and appetite has been "okay". Patient showed normal psychomotor activity. His speech was normal, not pressured. He was coherent without any evidence of thought disorder. He denied feeling paranoid and there were no delusions during the interview. He denied hallucinations. He denied any violent thoughts or thoughts of homicide. Assessment: 22-year-old white male who was admitted because an overdose while intoxicated. He was admitted on 11/15/2017. Since then, he has shown significant improvement. Tolerating med regimen. He has been free of thoughts of suicide for the long Day weekend. He feels ready for discharge and he seems to be ready for discharge with bright affect and significant mood improvement. No sense of hopelessness and nothing since of worthlessness. No wishes of or thinking of suicide. There is no evidence of psychotic symptoms. He is agreeable to the aftercare plan which is a dual track IOP at [facility] as well as once a week visiting nurse for a lock box. Plan Update: D/C Home today Pt. to follow up with [facility] Dual Track IOP [place] Carbonate 450 MG AT BEDTIME 11/21 2100 AC 11/21 PO 2048 [place] Carbonate 300 MG BID 11/16 1242 DC 11/21 PO 0845 Lorazepam 2 MG Q6P PRN 11/15 1745 AC IM Magnesium Hydroxide 30 ML AT BEDTIME PRN 11/15 1745 AC PO Melatonin 3 MG AT BEDTIME PRN 11/16 1151 AC PO Nicotine 2 MG Q2P PRN 11/15 1800 AC PO Omeprazole 20 MG DAILY AC 11/16 0700 AC 11/22 PO 0647 Trazodone HCl 50 MG AT BEDTIME NEED.. 11/15 1745 AC PO Vital Signs Date Time Temp Pulse Resp B/P B/P Pulse O2 O2 Flow FiO2 Mean Ox Delivery Rate 11/22 0754 98.0 76 147/76 11/21 1948 98.5 96 136/92 11/21 0837 97.5 91 142/86
[2017-11-22] MEDS ORDERED: NEURONTIN800 M2 PO (11:00)
[2017-11-22] MEDS ORDERED: NICORELIEF2 MG PO (11:00)
[2017-11-22] MEDS ORDERED: LITHIUM CARBON450 M1 PO (11:02)
[2017-11-22] MEDS ORDERED: DISULFIRAM250 M1 PO (11:04)
--- NOTE | 2017-11-22 11:08 | Patient Discharge Instructions ---
Psych Discharge Inst General Discharge Information Reason for Admission: overdose on Lamictal and Wellbutrin-XL Psy Discharge Primary Diag+ Bipolar II Psy Discharge Secondary Diag+ Alcohol Use Disorder Summary Tests/Major Procedures Lab [place] 0.4 mmol/L L 11/21/17 0608 Studies Pending at DC: None Patient Instructions Contact Information Your Psychiatrist on [facility] was Abebe NAVARRO,Sonu * If you are experiencing an emergency related to this hospitalization, please call [phone] to contact the treating psychiatrist or the psychiatrist-on- call. * To Request a copy of your medical records, please contact the Medical Records Department at [phone]. * To request results of studies pending at the time of discharge, please call [phone]. * Continue your Medications until directed to stop by your Healthcare provider. General Medication Information Please continue to take your new medications and your continued home medications , unless otherwise indicated on your discharge medication list, or unless directed by your MD or SAP FICO ARCHITECT to stop them. Special Instructions Diet Regular Activity Normal - Tobacco Use Treatment Offered Post DC Medications Offered: Script Given-See Med List Post DC Tobacco Treatment Plan: Refused Tobacco Tx Pgm - EtOH/Drug Use D/O Treatment Offered Post DC Medications Offered: Script Given-See Med List Post DC EtOH/SubAbuse [place] Plan: Other SubAbuse/Dual Pgm Metabolic Screening Not Applicable, patient not on a neuroleptic. Advance Directives Does the Patient have Medical Advance Directives No/Refused further info Does Pt have Psychiatric Advance Directives? No/Refused further info Does Patient have a Designated Surrogate Decision Maker: No Information About Psychiatric Advance Directives Provided? Refused Discharge Plan Post Hospital Treatment Plan: [facility] Dual Diagnosis [facility], [place], [place]
--- NOTE | 2017-11-22 11:14 | SOCIAL WORKER PROG NOTE PSYCH ---
Social Work Progress Note Progress Note Dr. Lomas and I met with Chilo together this morning. He reports that the weekend was a little slow and boring, but tried to make the most of being here. Reports visits from friends. States his mood is okay. He is anxious to leave today. Reviewed his appts. with [facility]. I told him that the team at [facility] was wondering about rehab treatment. He didn't seem to understand why they would want rehab, as he doesn't feel that his drinking has been that out of control. States he has drank 2x's in the last 2 months, but understands both times had significant consequences. I explored his willingness to receive VNS services. He really didn't want daily VNS, stating he has had it in the past and it has been problematic due to the timeframes they would come. He was willing to compromise with a weekly visit and pre-pour for the week and a lock box. I told him I would set this up before he leaves. He plans on being picked up by his roommate today. Dr. Lomas attempted to get him to call his family from the office today, but Chilo stated he would prefer to talk to them when he gets out of the hospital in person. Feels parents are over bearing. Looks stable. Smiling throughout discussion. Forward thinking. Called [facility] and spoke with Demetria in intake. They can provide service in the [place] area. Faxed her demographics and MAR. Asked for a weekly pre-pour and lock box. Plan to start service tomorrow.
--- NOTE | 2017-11-22 11:17 | DISCHARGE SUMMARY REPORT-PSYCH ---
Visit Information Visit Dates/Diagnosis' Admission Date: 11/15/17 Discharge Date: 11/22/17 Reason for Admission: overdose on Lamictal and Wellbutrin-XL Psy Discharge Primary Diag: Bipolar II Psy Discharge Secondary Diag: Alcohol Use Disorder Hospital Course Significant Lab Findings: Lab [place] 0.4 mmol/L L 11/21/17 0608 Course Complications: The patient did not have any complications while he was on the inpatient psychiatric unit. Consultations: Patient had a history and physical examination by the upsetter setter up. Please refer to the patient's electronic health record for the details of the H&P. Allergies: Coded Allergies: No Known Allergies (05/08/17) Hospital Course/TX Response: 11/16/2017: Dr. Mendoza's initial impression and Plan: 22-year-old male admitted following an impulsive overdose whilst intoxicated. Lengthy psychiatric history with extensive substance abuse. Father positive for bipolar disorder and substance abuse. Multiple trials of medication with erratic adherence and minimal effectiveness. Diagnosis(es): Bipolar 2 disorder most recent episode depressed without psychosis Alcohol use disorder severe dependence Benzodiazepine use disorder severe dependence in sustained full remission Initial Treatment Plan: - The patient has been admitted on a voluntary basis and placed on 15 minute checks for safety - He will participated in individual and group psychotherapy - -The patient has not been taking his Lamictal or bupropion for 6 days and would like to try a different medication. Following discussion we have agreed to start him on lithium. Possible side effects were explained to him as well as the need to ensure adequate fluid intake and stop the medication and contact his prescriber should he experience fluid loss through vomiting or diarrhea. - release of information would be obtained and his outpatient providers will be contacted -Family meeting will be offered -Referral to an intensive outpatient level of care on discharge 11/17/2017: -Continue medication as ordered -[place] level ordered for 11/21. Dose will likely need to be adjusted. -Family meeting offered and declined -Continue individual and group psychotherapy. The patient's insight is limited. -The patient will be referred to DD IOP at [facility] on discharge. -Tentative discharge date is November 23. 11/18/2017: Dr. Mendoza's Assessment -Continue lithium at 300 mg p.o. twice daily -[place] level ordered for November 21 -Likely increase of lithium to 450 mg p.o. twice daily following lithium draw -The patient will follow up at [facility]. He has an appointment for their IOP program. 11/19/2017: Dr. Shaver's A/P: 22 y/o Male. Bipolar DIsorder/ ETOH Use Dx. Hwere s/p OD on prescribed meds. Improving with reactive affect. Future oriented. Overall toleratign meds well. However notcing an increase rash in faical area. Coincides with introduction of lithium. [place] is known to exacerbate psoriatic rashes or acneiform rashes. Will monitor facial rash for now. Continue same tx regimen. Li level for tuesday. 11/20/2017: A/P [place] a 22 y/o Male.BPAD. / EOTH Use Dx. s/p OD. Stable. tolerating meds. Will be checking lithium level tomorrow AM to decide on adjustment of dose. COntinue same med regimen. 11/21/2017: A/P 22 y/o WM Bipolar Dx. EOTH Use Dx. Good improvement. Tolerating med regimen. Will adjust Li to 300 mg QAM/450 mg QHS. Other meds will continue same. 11/22/2017: The patient was interviewed with Gaby Lange LCSW. The patient reported that he has been doing well over the weekend. He reported that he was a little bit bored. He denied having any thoughts of suicide over the long Labor Day weekend. He was calm and cooperative. He seemed to be in good spirits. He showed good eye contact. He was in good behavioral control. He reported that he is tolerating his current medications without any major side effects. He reported that his sleep and appetite has been "okay". Patient showed normal psychomotor activity. His speech was normal, not pressured. He was coherent without any evidence of thought disorder. He denied feeling paranoid and there were no delusions during the interview. He denied hallucinations. He denied any violent thoughts or thoughts of homicide. Assessment: 22-year-old white male who was admitted because an overdose while intoxicated. He was admitted on 11/15/2017. Since then, he has shown significant improvement. Tolerating med regimen. He has been free of thoughts of suicide for the long Labor Day weekend. He feels ready for discharge and he seems to be ready for discharge with bright affect and significant mood improvement. No sense of hopelessness and nothing since of worthlessness. No wishes of or thinking of suicide. There is no evidence of psychotic symptoms. He is agreeable to the aftercare plan which is a dual track IOP at [facility] as well as once a week visiting nurse for a lock box. Plan Update: D/C Home today Pt. to follow up with [facility] Dual Track IOP Discharge HBIPS - Tobacco Use Treatment Offered Post DC Medications Offered: Script Given-See Med List Post DC Tobacco Treatment Plan: Refused Tobacco Tx Pgm - EtOH/Drug Use D/O Treatment Offered Post DC Medications Offered: Script Given-See Med List Post DC EtOH/SubAbuse TX Plan: Other SubAbuse/Dual Pgm Metabolic Screening - Screen if on a Neuroleptic Medication - Metabolic screening should include: - Blood Pressure, BMI, Glucose or Hgb A1c, & a - Lipid profile from within the past 365 days. Metabolic Screening Not Applicable, patient not on a neuroleptic. Discharge Instructions General Discharge Information Multiple Neuroleptics: Not Applicable Discharge Diet Regular Discharge Activity Normal DC Disposition: Home/self-care Referrals Ordered Referrals [facility] 12/01/[address] [place] [address] [phone] [facility] Intake for dual IOP for mental health and substance use treatment 12/01/17 10am 14 [place], [place] [phone] [facility] 12/05/[address] [place] [address] [phone] [facility] appt. with Dr. Johnson 12/05/17 1pm 14 [place], [place] [phone] Provider Referral 11/23/17 For Groups: [[facility]] [facility] for weekly prepours and lock box. Admission 11/23/17 Prescriptions Continue taking these medications: Lidocaine (Lidoderm) 5 % ADH..PATCH 1 Patch On the skin DAILY as needed for pain Qty = 30 Instructions: may wear up to 12 hours Comments: Last Taken: Time:NOT GIVEN IN HOSPITAL Esomeprazole Magnesium (Nexium) 20 MG CAPSULE.DR 1 Capsule ORAL DAILY Qty = 30 Comments: Last Taken:NOT GIVEN IN THE HOSPITAL Time:RECEIVED PRILOSEC 20MG AT 7AM ON 11/22/17 Start taking the following new medications: Nicotine (Nicorelief) 2 MG GUM 2 Milligram ORAL EVERY 2 HOURS NEEDED as needed for nicotine craving Qty = 60 No Refills Comments: Last Taken:NOT USED IN THE HOSPITAL Time: Gabapentin (Neurontin) 800 MG TABLET 1 Tablet ORAL THREE TIMES DAILY Qty = 45 No Refills Comments: Last Taken:11/22/17 Time:8AM [place] Carbonate ([place] Carbonate ER) 450 MG TABLET.ER 1 Tablet ORAL TWICE DAILY Qty = 30 No Refills Comments: Last Taken:RECEIVED 450MG ON 11/21/17 AT 8PM TimeRECEIVED 300MG AT 8AM ON 11/22/17 Disulfiram (Disulfiram) 250 MG TABLET 2 Tablet ORAL DAILY Qty = 30 No Refills Comments: Last Taken:11/22/17 Time:8AM Studies Pending at Discharge None Copies To: Yara
--- NOTE | 2017-11-22 14:33 | SOCIAL WORKER PROG NOTE PSYCH ---
Social Work Progress Note Faxed Referral(s) 1 Referred To: [facility] Transition of Care Documents sent: Health Summary, W10 Faxed to: Care Fax #: [phone] Faxed by: Gaby Lange Date faxed: 11/22/17 Time Faxed: [phone] Faxed Referral(s) 2 Referred To: [facility] Transition of Care Documents sent: Health Summary, W10 Faxed to: [facility] Fax #: [phone] Faxed by: Gaby Lange Date faxed: 11/22/17 Time Faxed: [phone]
== END 2017-11-22 12:53 | DRG 753 ==
LOC: CP SOUTH 14:10
DX: F31.9 Bipolar disorder, unspecified (principal); F10.10 Alcohol abuse, uncomplicated
CPT/HCPCS: 36415; J0515; J3490